=== PATIENT | female | born 1955 | race Caucasian/White ===

== ENCOUNTER → 2017-02-10 09:56 | Outpatient (CLI) | payer MEDICARE | END | disposition home or self-care (01) | LOC: D.MRI 09:56 | DX: M54.32 Sciatica, left side (principal); G62.9 Polyneuropathy, unspecified ==

== ENCOUNTER 2019-01-14 16:46 | Inpatient (IN) | payer MEDICARE ==
[~2019-01-14] VITALS: Ht 157.5 cm; Wt 94.8 kg
[2019-01-14 18:10] LABS: HEMATOCRIT 30.1 % (36.0-48.0); HEMOGLOBIN 10.4 g/dL (12-16); MCH 30.8 pg (26.0-34.0); MCHC 34.6 g/dL (31.0-37.0); MCV 89.1 fL (80.0-100.0); MEAN PLATELET VOLUME 10.3 fL (7.4-10.4); PLATELET COUNT 377 10x3/uL (130-400); RBC 3.38 10x6/uL (4.00-5.40); RDW 14.5 % (11.5-14.5); WBC 27.6 10x3/uL (4.8-10.8)
[2019-01-14 18:23] LABS: ALBUMIN 1.8 g/dL (3.4-5.0); ANION GAP 19.6 mmol/L (8-16); BILIRUBIN - TOTAL 0.73 mg/dL (0.2-1.3); CALCIUM 9.1 mg/dL (8.5-10.1); CARBON DIOXIDE 18.4 mmol/L (21.0-32.0); CREATININE - SERUM 1.2 mg/dL (0.6-1.3); PROTEIN - SERUM 6.9 g/dL (6.4-8.2)
[2019-01-14 18:31] LABS: EOSINOPHILS 1 % (0-7); LYMPHOCYTES 2 % (15-50); MONOCYTES 4 % (2-11); NEUTROPHILS 81 % (40-80)
[2019-01-14 18:32] LABS: ROULEAUX OCC
[2019-01-14 18:33] LABS: TARGET CELLS OCC; TEAR DROP CELLS OCC
[2019-01-14 18:34] LABS: PLATELET ESTIMATE INCREASED
[2019-01-14 20:31] VITALS: BP 115/58
--- NOTE | 2019-01-14 21:00 | NUR ---
RECEIVED PT TO FLOOR FROM ER VIA WHEELCHAIR. REVIEWED HOME MEDS AND HISTORY. ASSESSED PT WITH DR FRAGA. LOWER ABDOMEN SWOLLEN/RED. GROIN/LABIA SWOLLEN AND RED WITH ABSCESS ON RIGHT LABIA - DOCUMENTED PER FLOWSHEET. NO OTHER NEEDS AT THIS TIME. WILL CONTINUE TO MONITOR.
[2019-01-14] MEDS ORDERED: CARDIZEM 90 MG90 MG PO (21:04)
[2019-01-14] MEDS ORDERED: LOPID600 MG PO (21:05)
[2019-01-14] MEDS ORDERED: DICLOFENAC SODI50 MG PO (21:06)
[2019-01-14] MEDS ORDERED: JANUVIA50 MG PO (21:07)
[2019-01-14] MEDS ORDERED: GLUCOPHAGE500 MG PO (21:07)
[2019-01-14] MEDS ORDERED: COZAAR50 MG PO (21:07)
[2019-01-14] MEDS ORDERED: CYCLOBENZAPRINE10 MG PO (21:08)
[2019-01-14] MEDS ORDERED: MIRAPEX0.25 MG PO (21:09)
[2019-01-14] MEDS ORDERED: TRESIBA FLEX INJ 200 SC (21:11)
[2019-01-14] MEDS ORDERED: TRESIBA FLEX INJ 200 SQ (21:12)
[2019-01-14] MEDS ORDERED: CELEXA40 MG PO (21:13)
[2019-01-14] MEDS ORDERED: NOVOLOG100 UNIT/1 SC (21:14)
[2019-01-14] MEDS ORDERED: XALATAN 0.0052.5 ML EACH EYE (21:17)
[2019-01-14] MEDS ORDERED: OCUFLOX 0.3 % OP5 ML EACH EYE (21:18)
[2019-01-14] MEDS ORDERED: PRED-FORTE 1% OP5 ML LEFT EYE (21:24)
[2019-01-14] MEDS ORDERED: HYDROCODON-ACE1 EAC7 PO (21:30)
[2019-01-15 00:32] VITALS: BP 120/54; BMI 38.3
[2019-01-15 01:03] VITALS: BP 110/44
[2019-01-15 05:43] LABS: BASOPHILS 0.1 % (0-2); EOSINOPHILS 0.8 % (0-7); HEMATOCRIT 28.1 % (36.0-48.0); HEMOGLOBIN 9.6 g/dL (12-16); IMMATURE GRANULOCYTES 1.9 % (0-5); LYMPHOCYTES 3.3 % (15-50); MCH 30.4 pg (26.0-34.0); MCHC 34.2 g/dL (31.0-37.0); MCV 88.9 fL (80.0-100.0); MEAN PLATELET VOLUME 10.1 fL (7.4-10.4); NEUTROPHILS 87.9 % (40-80); PLATELET COUNT 343 10x3/uL (130-400); RBC 3.16 10x6/uL (4.00-5.40); RDW 14.8 % (11.5-14.5)
[2019-01-15 05:57] LABS: CALCIUM 8.8 mg/dL (8.5-10.1); CARBON DIOXIDE 18.8 mmol/L (21.0-32.0); POTASSIUM - SERUM 3.8 mmol/L (3.5-5.1)
--- NOTE | 2019-01-15 07:56 | NUR ---
PT ALERT X 4. BREATH SOUNDS CLEAR BILAT. IV TO LEFT FOREARM, PATENT, DRESSING CDI. LOWER ABDOMINAL AND GROIN AREA REDDENED AND FIRM, BLISTER TO LOWER ABDOMINAL, ABSCESS TO RIGHT POSTERIOR LABIA, ABSCESS TO LEFT ANTERIOR GROIN AREA, NO DRAINAGE AT THIS TIME. PT REPORTING NO PAIN. BED LOW, CALL LIGHT IN REACH. NO OTHER NEEDS AT THIS TIME.
--- NOTE | 2019-01-15 08:32 | HP ---
PATIENT: LISA RENDON MEDICAL RECORD: [id number] ACCOUNT: [id number] LOCATION:D.MS [id number] : 53 ADMISSION DATE: 01/14/19 PCP: ASHANTI RALPH MD HISTORY AND PHYSICAL EXAMINATION DATE OF ADMISSION: 01/14/2019 REASON FOR ADMISSION: Vulvar abscess. HISTORY OF PRESENT ILLNESS: This is a 63-year-old female, a patient of Dr. Ralph, who states she had onset of redness and swelling to the suprapubic area. It started 3 days ago, has gotten larger, was draining a little bit. She went to a walk-in clinic where they examined her, felt she had a large abscess and was transported to [facility]. Her white blood cell count was 27,600. Her lactic acid level was 1.8. Her magnesium level was 0.9. She has a large abscess in the right labia majora and she is admitted. PAST MEDICAL AND SURGICAL HISTORY: She has diabetes, reflux, depression, hypertension. PAST SURGICAL HISTORY: She recently had a cataract surgery in the left eye. She has had 3 back surgeries, carpal tunnel release, and left knee arthroscopic procedure. ALLERGIES: SULFA, CLINDAMYCIN, LISINOPRIL, AND IODINE. HOME MEDICATIONS: Include Flexeril 10 mg b.i.d. p.r.n. muscle spasm, diltiazem 90 mg 1 p.o. b.i.d., gemfibrozil 600 mg 1 p.o. b.i.d., losartan 50 mg once a day, diclofenac 50 mg b.i.d., pramipexole 0.25 mg p.o. at bedtime, citalopram 40 mg once a day, hydrocodone 10/325 one b.i.d. p.r.n. pain, latanoprost 0.005% ophthalmic drops 1 drop each eye once a day, ofloxacin 0.3% ophthalmic drops 1 drop in each eye 4 times a day, prednisolone acetate 1% ophthalmic drops 1 drop OS 4 times a day, Januvia 50 mg once a day, metformin 1000 mg twice a day, NovoLog insulin per sliding scale, Tresiba insulin 32 units subcutaneously in the morning and 30 units subcutaneously at bedtime. HABITS: No tobacco, alcohol or drugs. SOCIAL HISTORY: She lives with her ex- who also is her fiance. FAMILY HISTORY: Father at 63 of lung cancer. Mother at 72 of lung cancer. REVIEW OF SYSTEMS: GENERAL: No major weight changes. HEENT: No particular sinus or allergy problems. RESPIRATORY: No history of asthma or emphysema. CARDIAC: No history of heart disease or palpitations. GASTROINTESTINAL: She has had some heartburn. GENITOURINARY: No significant problems there. ENDOCRINE: She has diabetes, but she states is usually under better control, but she had cataract surgery in the last couple of weeks and has been on steroid eyedrops, which have really made her blood sugars go up. MUSCULOSKELETAL: She has had 3 low back surgeries and left knee arthroscopy, so she has some occasional muscle aches and pains and joint aches and pains. HISTORY AND PHYSICAL [id number] LISA RENDON NEUROLOGIC: No seizures. No migraines. She does have restless legs syndrome. PSYCHIATRIC: She has depression. PHYSICAL EXAMINATION: VITAL SIGNS: Today, temperature 98.4, pulse 92, respirations 16, blood pressure is 115/58, O2 sat 91%. GENERAL: She is awake and alert. She does not appear to be in acute distress. HEENT: Unremarkable. NECK: Supple. No JVD or bruit. HEART: Regular rate and rhythm. LUNGS: Clear. ABDOMEN: Soft, obese, nontender. PELVIC: She has some mild erythema in the suprapubic area on the right and down the right labia majora, palpation of this area shows a mass at least 6 cm in size along the labia majora. EXTREMITIES: She has multiple superficial abrasions from babysitting one of her family members' puppies. LABORATORY DATA: CBC white count 27,600, hemoglobin 10.4, hematocrit 30.1. Basic metabolic panel is okay except glucose is 249. Liver functions were okay. Lactic acid is normal at 1.8. Magnesium was low at 0.9. ASSESSMENT: 1. Abscess of the labia majora. 2. Diabetes. 3. Hypomagnesemia. PLAN: It was erroneously dictated in the ED note that patient did receive Cleocin; however, that medicine was not given as it was realized that she had an ALLERGIC REACTION TO CLEOCIN, will start vancomycin and Zosyn, will consult general surgery to see her tomorrow morning for this rather large abscess. We will monitor her diabetes. Will replace her magnesium. Other tests or procedures as warranted. TRANSINT:[id number] Voice Confirmation ID: [id number] DOCUMENT ID: [id number] JUNIOR FRAGA MD at 0832 CC: [id number] DICTATION DATE: 01/15/1950 STOPPER GRINDER: 01/15/19 0245 ADM IN [place] [id number] [place] [address]
[2019-01-15 09:49] VITALS: BP 134/74
--- NOTE | 2019-01-15 12:47 | NUR ---
PT SITTING UP IN BED PT LUNCH TRAY WAS ON NURSES STATION AND WENT TO TAKE IT TO PT SHE STATED SHE IS NOT SUPPOSE TO EAT UNTIL SURGERY HAS SEEN HER AND SHE DID HAVE BREAKFAST. WILL CONTINUE WITH PLAN OF CARE. NO OTHER NEEDS VOICED BED IN LOW POSITION, CL IN REACH
[2019-01-15 13:35] VITALS: BP 129/63
[2019-01-15 18:20] VITALS: BP 124/67
--- NOTE | 2019-01-15 20:00 | NUR ---
ALERT RESTING IN BED, AWAITING SURGERY, DENIES NEEDS AT THIS TIME, SEE SHIFT ASSESSMENT, CALL LIGHT IN REACH,
[2019-01-15 21:04] VITALS: BP 159/57
--- NOTE | 2019-01-15 22:35 | NUR ---
PRE OP MEDS GIVEN, TO SURGERY VIA BED
[2019-01-16] VITALS (8 sets, daily range): BP systolic 96–142; BP diastolic 45–78
--- NOTE | 2019-01-16 00:20 | NUR ---
BACK FROM SURGERY, ALERT, PACKING IN PLACE TO RIGHT LABIA, BARRETO CATH TO BEDSIDE DRAINAGE, VSS DENIES NEEDS AT THIS TIME, CALL LIGHT IN REACH
--- NOTE | 2019-01-16 01:05 | NUR ---
ONE UNIT OF BLOOD STARTED NO SIGN OF REACTION, C/O BURNING PAIN TO LABIA, WILL GIVE PAIN MEDICATION
[2019-01-16 05:34] LABS: HEMATOCRIT 29.4 % (36.0-48.0); MCH 30.8 pg (26.0-34.0); MCV 90.5 fL (80.0-100.0); PLATELET COUNT 335 10x3/uL (130-400); RBC 3.25 10x6/uL (4.00-5.40); RDW 14.8 % (11.5-14.5); WBC 22.9 10x3/uL (4.8-10.8)
[2019-01-16 05:35] LABS: CALC OSMOLALITY 274 mosm/kg (275-300); CALCIUM 7.6 mg/dL (8.5-10.1); CARBON DIOXIDE 17.7 mmol/L (21.0-32.0); CHLORIDE - SERUM 101 mmol/L (98-107); CREATININE - SERUM 0.8 mg/dL (0.6-1.3); GLUCOSE 192 mg/dL (74-106); POTASSIUM - SERUM 3.9 mmol/L (3.5-5.1); SODIUM 133 mmol/L (136-145); UREA NITROGEN 23 mg/dL (7-18); eGFR NON AFRICAN AMERICAN 76 mL/min (90-120)
--- NOTE | 2019-01-16 07:40 | NUR ---
AWAKE AND ALERT. ORIENTED X3. NO C/O AT THIS TIME. LUNGS ARE CLEAR BILATERALLY, NO COUGH NOTED. SKIN IS INTACT WITHOUT REDNESS EXCEPT INCISION TO VAGINAL AREA WHICH HAS A DRY INTACT DRESSING IN PLACE. IV TO RIGHT FOREARM IS PATENT WITHOUT REDNESS. SL TO LEFT HAND IS SAME. DENIES NEEDS. BARRETO PATENT WITH CLEAR YELLOW URINE.
[2019-01-16 08:18] LABS: EOSINOPHILS 3 % (0-7); LYMPHOCYTES 10 % (15-50); MONOCYTES 8 % (2-11); NEUTROPHILS 70 % (40-80); PLATELET ESTIMATE NORMAL; ROULEAUX OCC
--- NOTE | 2019-01-16 08:45 | NUR ---
DR. SCHAFFER HERE AND CHANGED DRESSING TO VAGINAL AREA. WOUND IS CLEAN AND NON ODIFEROUS AT THIS TIME.
--- NOTE | 2019-01-16 11:30 | NUR ---
FSBS 215. GIVEN 4 UNITS REGULAR SUB Q PER SS.
--- NOTE | 2019-01-16 17:00 | NUR ---
FSBS 265. GIVEN 4 UNITS REGULAR SUBQ PER SS.
--- NOTE | 2019-01-16 18:51 | NUR ---
ATE LESS THAN 10% OF SUPPER. DENIES NEEDS NO CHANGES NOTED.
--- NOTE | 2019-01-16 20:00 | NUR ---
ALERT RESTING IN BED, DENIES PAIN OR NEEDS AT THIS TIME,SEE SHIFT ASSESSMENT, CALL LIGHT IN REACH
--- NOTE | 2019-01-17 01:00 | NUR ---
DRESSING CHANGED TO RIGHT LABIA, WET TO DRY WITH ROLL OF KERLIX COVERED WITH ABD PAD AND SECURED WITH PANTIES, TOLERATED WELL
[2019-01-17 02:13] VITALS: BP 137/69
[2019-01-17 04:50] VITALS: BP 140/74
[2019-01-17 05:31] LABS: BASOPHILS 0.2 % (0-2); EOSINOPHILS 1.9 % (0-7); HEMATOCRIT 29.7 % (36.0-48.0); HEMOGLOBIN 10.2 g/dL (12-16); IMMATURE GRANULOCYTES 2.7 % (0-5); LYMPHOCYTES 10.2 % (15-50); MCH 31.1 pg (26.0-34.0); MCHC 34.3 g/dL (31.0-37.0); MCV 90.5 fL (80.0-100.0); MEAN PLATELET VOLUME 9.7 fL (7.4-10.4); MONOCYTES 5.7 % (2-11); NEUTROPHILS 79.3 % (40-80); PLATELET COUNT 366 10x3/uL (130-400); RBC 3.28 10x6/uL (4.00-5.40); RDW 15.2 % (11.5-14.5)
[2019-01-17 05:44] LABS: WBC 15.5 10x3/uL (4.8-10.8)
[2019-01-17 05:45] LABS: ANION GAP 16.5 mmol/L (8-16); CALCIUM 8.2 mg/dL (8.5-10.1); CARBON DIOXIDE 18.1 mmol/L (21.0-32.0); CREATININE - SERUM 0.9 mg/dL (0.6-1.3); POTASSIUM - SERUM 3.6 mmol/L (3.5-5.1)
[2019-01-17 08:48] VITALS: BP 164/95
[2019-01-17 12:23] VITALS: BP 162/83
--- NOTE | 2019-01-17 14:48 | NUR ---
22 GAUGE IV STARTED IN LEFT LOWER ARM X 1 STICK. FLUSHED WITHOUT DIFFICULTY OR EDEMA OR REDNESS. SECURED WITH TEGADERM. 1 GRAM VANC STARTED VIA INFUSION PUMP.
--- NOTE | 2019-01-17 14:54 | MORECARE ---
CASE MANAGEMENT DISCHARGE SUMMARY PATIENT: LISA RENDON UNIT: [id number] ADM DATE: 01/14/19 AGE: 63 : 54 SEX: F ROOM/BED: D.2207 AUTHOR: CHERRY VILLAREAL PHYSICIAN: REFERRING PHYSICIAN: ASHANTI MANUEL MD DATE OF SERVICE: 01/17/19 Discharge Plan Patient Name: LISA RENDON Facility: [facility]:[place] : 1955 Planned Disposition: Home Anticipated Discharge Date: Discharge Date: Expected LOS: Initial Reviewer: [email or web address] Initial Review Date: 01/14/2019 Generated: 01/17/19 3:54 pm DCPIA - Discharge Planning Initial Assessment Updated by [email or web address]: Tyra Parra on 01/17/19 2:54 pm * Is the patient Alert and Oriented? Yes * How many steps to enter\exit or inside your home? RAMP * PCP * Pharmacy [facility] * Preadmission Environment Home with Family * ADLs Independent * Equipment Bedside Commode Elevated Toliet Seat Glucometer Nebulizer Rolling Walker Shower Chair Walker Wheelchair * List name and contact numbers for known caregivers / representatives who currently or will assist patient after discharge: VIOLA [phone] * Verbal permission to speak to the caregivers and representatives has been obtained from the patient. Yes * Community resources currently utilized None * Additional services required to return to the preadmission environment? No * Can the patient safely return to the preadmission environment? Yes * Has this patient been hospitalized within the prior 30 days at any hospital? No Patient Name: LISA RENDON Page [phone] at 1454 All edits/amendments must be made on the electronic document DICTATION DATE: 01/17/191453 BARKER OPERATOR: ADE 01/17/191453 RPT#: [id number] DC DATE: STATUS: ADM IN [facility] [address] [place] [address] END OF REPORT
--- NOTE | 2019-01-17 15:01 | MORECARE ---
CASE MANAGEMENT DISCHARGE SUMMARY PATIENT: LISA RENDON UNIT: [id number] ADM DATE: 01/14/19 AGE: 63 : 54 SEX: F ROOM/BED: D.2207 AUTHOR: CHERRY VILLAREAL PHYSICIAN: REFERRING PHYSICIAN: ASHANTI MANUEL MD DATE OF SERVICE: 01/17/19 Discharge Plan Patient Name: LISA RENDON Facility: [facility]:[place] : 1955 Planned Disposition: Home Anticipated Discharge Date: Discharge Date: Expected LOS: Initial Reviewer: [email or web address] Initial Review Date: 01/14/2019 Generated: 01/17/19 4:01 pm Comments DCP- Discharge Planning Updated by [email or web address]: Tyra Parra on 01/17/19 1:[address] Patient Name: LISA RENDON Admission Status: ER Accout number: [id number] Admission Date: 01-14-2019 : 1955 Admission Diagnosis: Attending: ASHANTI MANUEL Current LOS: 3 Anticipated DC Date: Planned Disposition: Home Primary Insurance: MEDICARE A & B Discharge Planning Comments: CM met with patient to complete initial dc planning assessment. CM educated patient on the CM role and verbal consent given by patient to complete assessment. Patient lives at home with her where she is independent with her care. At discharge patient plans to return home and feels this is a safe discharge. Viola, will be her starting gate driver home. CM discussed availability of home health, rehab services, and medical equipment. Patient stated that she has a cane, walker, wheelchair, shower chair, and glucometer at home. Patient denied known discharge needs at this time. Did not feel like she needed home health either. CM will continue to follow and will assist as needed with dc plans/needs. Quick Sketch Artist: Tyra Parra DCPIA - Discharge Planning Initial Assessment Updated by [email or web address]: Tyra Parra on 01/17/19 2:54 pm * Is the patient Alert and Oriented? Yes * How many steps to enter\exit or inside your home? RAMP * PCP YEMENI * [facility] * Preadmission Environment Home with Family * ADLs Independent * Equipment Bedside Commode Elevated Toliet Seat Glucometer Nebulizer Rolling Walker Shower Chair Walker Wheelchair * List name and contact numbers for known caregivers / representatives who currently or will assist patient after discharge: VIOLA [phone] * Verbal permission to speak to the caregivers and representatives has been obtained from the patient. Yes * Community resources currently utilized None * Additional services required to return to the preadmission environment? No * Can the patient safely return to the preadmission environment? Yes * Has this patient been hospitalized within the prior 30 days at any hospital? No Last DP export: 01/17/19 1:54 pm Patient Name: LISA RENDON Page [phone] at 1501 All edits/amendments must be made on the electronic document DICTATION DATE: 01/17/19 150 PATIENT ADMITTING CLERK: ADE 01/17/19 1501 RPT#: [id number] DC DATE: STATUS: ADM IN [facility] [address] [place] [address] END OF REPORT
[2019-01-17 16:45] VITALS: BP 149/81
[2019-01-17 21:27] VITALS: BP 176/83
[2019-01-18 02:05] VITALS: BP 163/74
[2019-01-18 04:29] LABS: HEMATOCRIT 29.9 % (36.0-48.0); MCH 30.4 pg (26.0-34.0); MCHC 33.4 g/dL (31.0-37.0); MCV 90.9 fL (80.0-100.0); MEAN PLATELET VOLUME 9.7 fL (7.4-10.4); PLATELET COUNT 372 10x3/uL (130-400); RBC 3.29 10x6/uL (4.00-5.40); RDW 15.5 % (11.5-14.5); WBC 13.8 10x3/uL (4.8-10.8)
[2019-01-18 04:31] LABS: ANION GAP 15.9 mmol/L (8-16); CALCIUM 8.4 mg/dL (8.5-10.1); CARBON DIOXIDE 19.3 mmol/L (21.0-32.0); CREATININE - SERUM 0.9 mg/dL (0.6-1.3)
[2019-01-18 04:32] LABS: POTASSIUM - SERUM 4.2 mmol/L (3.5-5.1)
[2019-01-18 05:03] LABS: EOSINOPHILS 2 % (0-7); LYMPHOCYTES 12 % (15-50); MONOCYTES 6 % (2-11); NEUTROPHILS 74 % (40-80); PLATELET ESTIMATE NORMAL
[2019-01-18 06:17] VITALS: BP 118/70
[2019-01-18 10:08] VITALS: BP 143/81
[2019-01-18 13:03] VITALS: BP 130/56
--- NOTE | 2019-01-18 14:54 | NUR ---
DRESSING CHANGE COMPLETED. TOLERATED WELL. PATIENT UP IN CHAIR. LINENS CHANGED. CL AND PHONE IN REACH. NO NEEDS AT THIS TIME.
[2019-01-18 16:58] VITALS: BP 151/74
[2019-01-18 21:16] VITALS: BP 160/69
[2019-01-19 00:26] VITALS: BP 150/63
--- NOTE | 2019-01-19 02:17 | NUR ---
I have reviewed this patient and I concur with the Shift Assessment completed by the Licensed Practical Nurse today this shift.
--- NOTE | 2019-01-19 03:01 | NUR ---
PT RESTING IN BED. EYES CLOSED. NO SIGNS OF DISTRESS. BREATHING EVEN AND UNLABORED. CALL LIGHT IN REACH. BED LOWERED AND LOCKED. WILL CONTINUE PLAN OF CARE.
[2019-01-19 04:44] LABS: BASOPHILS 0.2 % (0-2); EOSINOPHILS 1.9 % (0-7); HEMATOCRIT 29.1 % (36.0-48.0); HEMOGLOBIN 9.8 g/dL (12-16); LYMPHOCYTES 11.1 % (15-50); MCH 30.8 pg (26.0-34.0); MCHC 33.7 g/dL (31.0-37.0); MCV 91.5 fL (80.0-100.0); MEAN PLATELET VOLUME 9.5 fL (7.4-10.4); MONOCYTES 6.9 % (2-11); NEUTROPHILS 73.9 % (40-80); PLATELET COUNT 353 10x3/uL (130-400); RBC 3.18 10x6/uL (4.00-5.40); RDW 15.5 % (11.5-14.5); WBC 14.3 10x3/uL (4.8-10.8)
[2019-01-19 04:59] LABS: CALC OSMOLALITY 273 mosm/kg (275-300); CALCIUM 8.3 mg/dL (8.5-10.1); CARBON DIOXIDE 20.3 mmol/L (21.0-32.0); CHLORIDE - SERUM 104 mmol/L (98-107); CREATININE - SERUM 0.8 mg/dL (0.6-1.3); GLUCOSE 121 mg/dL (74-106); POTASSIUM - SERUM 4.1 mmol/L (3.5-5.1); SODIUM 136 mmol/L (136-145); UREA NITROGEN 14 mg/dL (7-18); eGFR NON AFRICAN AMERICAN 76 mL/min (90-120)
[2019-01-19 05:12] VITALS: BP 164/70
[2019-01-19 08:58] VITALS: BP 162/83
[2019-01-19 13:05] VITALS: BP 152/69; BMI 38.2
--- NOTE | 2019-01-19 15:00 | NUR ---
WET TO DRY DRESSING CHANGED TO RIGHT LABIA PER ORDERS
[2019-01-19 18:05] VITALS: BP 173/85; Ht 157.5 cm; Wt 94.8 kg
--- NOTE | 2019-01-19 19:56 | NUR ---
20 DIANA TO LEFT FA WITH ONE ATEMPT. TOLARATED WELL.
[2019-01-19 20:02] VITALS: BP 152/81
--- NOTE | 2019-01-19 20:08 | NUR ---
RESTING IN BED WITH NO NEEDS AT THIS TIME 20 DIANA WITH NS AT [address] TELE[address] IN [PLACVE F/C IN PLACE AND DAYRONEN, NO NEEDS AT THIS TIME.
[2019-01-20 00:33] VITALS: BP 153/72
--- NOTE | 2019-01-20 02:47 | NUR ---
DRESSING CHANGED PEER ORDERS AT 0130 TOLARATED WELL
[2019-01-20 04:39] VITALS: BP 139/70
--- NOTE | 2019-01-20 07:30 | NUR ---
PT AAOX4 RESP EVEN AND NONLABORED, NO SIGNS OF DISTRESS NOTED, FAMILY AT BEDSIDE NO NEEDS EXPRESSED CL IN REACH
[2019-01-20 08:04] LABS: BASOPHILS 0.1 % (0-2); HEMATOCRIT 31.1 % (36.0-48.0); HEMOGLOBIN 10.4 g/dL (12-16); IMMATURE GRANULOCYTES 6.3 % (0-5); LYMPHOCYTES 14.7 % (15-50); MCH 30.8 pg (26.0-34.0); MCHC 33.4 g/dL (31.0-37.0); MEAN PLATELET VOLUME 9.8 fL (7.4-10.4); MONOCYTES 7.6 % (2-11); NEUTROPHILS 69.3 % (40-80); PLATELET COUNT 392 10x3/uL (130-400); RBC 3.38 10x6/uL (4.00-5.40); RDW 15.1 % (11.5-14.5); WBC 13.8 10x3/uL (4.8-10.8)
[2019-01-20 08:14] LABS: CALC OSMOLALITY 274 mosm/kg (275-300); CALCIUM 8.5 mg/dL (8.5-10.1); CARBON DIOXIDE 20.8 mmol/L (21.0-32.0); CHLORIDE - SERUM 105 mmol/L (98-107); CREATININE - SERUM 0.7 mg/dL (0.6-1.3); GLUCOSE 149 mg/dL (74-106); POTASSIUM - SERUM 3.6 mmol/L (3.5-5.1); SODIUM 136 mmol/L (136-145); UREA NITROGEN 13 mg/dL (7-18); eGFR NON AFRICAN AMERICAN 89 mL/min (90-120)
[2019-01-20 09:06] VITALS: BP 150/66
--- NOTE | 2019-01-20 09:30 | NUR ---
DRESSING CHANGED PER DR. SEGURA PT TOLERATED WITHOUT COMPLIANT
[2019-01-20 12:27] VITALS: BP 160/82
[2019-01-20 16:44] VITALS: BP 145/69
--- NOTE | 2019-01-20 18:18 | NUR ---
I have reviewed this patient and I concur with the Shift Assessment completed by the Licensed Practical Nurse today this shift.
--- NOTE | 2019-01-20 19:45 | NUR ---
PT LYING IN BED RESTING WITH EYES CLOSED, WITHOUT DISTRESS. DENIES NEEDS OR PAIN. CL IN REACH, WILL CTM
[2019-01-20 20:28] VITALS: BP 159/80
--- NOTE | 2019-01-20 20:30 | NUR ---
IV LEFT FA INFILTRATED, DC'D WITH CATHETER INTACT
--- NOTE | 2019-01-20 22:00 | NUR ---
DRESSING CHANGED ORDERED TO RIGHT GROIN/ELIZABETH AREA
--- NOTE | 2019-01-20 23:00 | NUR ---
22G IV SITED TO RIGHT HAND X1 ATTEMPT
[2019-01-21 00:31] VITALS: BP 134/73
[2019-01-21 09:39] VITALS: BP 162/82
--- NOTE | 2019-01-21 12:00 | NUR ---
PT VISTING WITH FAMILY IN THE ROOM, CL IN REACH NO SIGNS OF DISTRESS NOTED
[2019-01-21 14:17] VITALS: BP 174/76
[2019-01-21 16:59] VITALS: BP 169/80
--- NOTE | 2019-01-21 17:59 | NUR ---
I have reviewed this patient and I concur with the Shift Assessment completed by the Licensed Practical Nurse today this shift.
--- NOTE | 2019-01-21 19:45 | NUR ---
PT LYING IN BED RESTING WITHOUT DISTRESS, ALERT AND ORIENTED. DENIES NEEDS OR PAIN. SCDS ON, CL IN REACH. WILL CTM
[2019-01-21 19:48] VITALS: BP 176/80
[2019-01-22 01:52] VITALS: BP 136/57
--- NOTE | 2019-01-22 04:30 | NUR ---
DRESSING CHANGED TO RIGHT GROIN/ELIZABETH AREA ORDERED
[2019-01-22 06:20] VITALS: BP 147/64
--- NOTE | 2019-01-22 08:09 | NUR ---
PATIENT RESTING IN BED. DRESSING C/D/I. NO NEEEDS VOICED, CL IN REACH
[2019-01-22 09:40] VITALS: BP 191/91
--- NOTE | 2019-01-22 13:16 | NUR ---
NUTRITION F/U PT TOLERATING DIABETIC DIET, 100% INTAKE RECENT MEALS. WILL CONTINUE TO PROVIDE DIET, MONITOR PO INTAKE. RD FOLLOWING
[2019-01-22 13:55] VITALS: BP 172/78
--- NOTE | 2019-01-22 15:59 | NUR ---
DR MANUEL NOTIFIED OF PATIENTS C/O ITCHING AND REDNESS TO ELIZABETH, GROIN AREA. ONE TIME DOSE OF DIFLUCAN ORDERED
[2019-01-22 17:39] VITALS: BP 155/71
[2019-01-22 18:07] LABS: AEROBE ID Final report (())
[2019-01-22 20:34] VITALS: BP 177/67
[2019-01-23] VITALS (12 sets, daily range): BP systolic 135–177; BP diastolic 59–83
--- NOTE | 2019-01-23 04:07 | NUR ---
I have reviewed this patient and I concur with the Shift Assessment completed by the Licensed Practical Nurse today this shift.
--- NOTE | 2019-01-23 08:42 | NUR ---
PATIENT OFF FLOOR FOR SURGERY
[2019-01-23 09:32] LABS: BASOPHILS 0.2 % (0-2); EOSINOPHILS 2.2 % (0-7); HEMATOCRIT 30.6 % (36.0-48.0); HEMOGLOBIN 10.1 g/dL (12-16); IMMATURE GRANULOCYTES 1.4 % (0-5); LYMPHOCYTES 18.6 % (15-50); MCH 30.9 pg (26.0-34.0); MCV 93.6 fL (80.0-100.0); MEAN PLATELET VOLUME 10.2 fL (7.4-10.4); MONOCYTES 7.4 % (2-11); NEUTROPHILS 70.2 % (40-80); PLATELET COUNT 465 10x3/uL (130-400); RBC 3.27 10x6/uL (4.00-5.40); RDW 15.1 % (11.5-14.5); WBC 14.1 10x3/uL (4.8-10.8)
--- NOTE | 2019-01-23 11:12 | NUR ---
1028 - PIV RESITED TO RT AC BY MILLER DEWITT HEAVY [employer]
--- NOTE | 2019-01-23 15:53 | NUR ---
PATIENT DRESSING CHANGED. TOP RIGHT CORNER HAD A BIT OF BLEEDING. PATIENT SAID, "IT BURNED". DENIES ANY PAIN AT THIS TIME CL AND PHONE IN REACH. TM
[2019-01-24 01:22] VITALS: BP 133/61
--- NOTE | 2019-01-24 05:00 | NUR ---
DRESSING CHANGED PER ORDER. VERY LITTLE BLEEDING NOTED. PT TOLERATED WELL. BARRETO/PERICARE COMPLETED. PT DENIES NEED FOR PAIN MEDICATION. WILL CONTINUE TO MONITOR.
[2019-01-24 05:11] LABS: BASOPHILS 0.3 % (0-2); EOSINOPHILS 2.4 % (0-7); HEMATOCRIT 29.1 % (36.0-48.0); HEMOGLOBIN 9.4 g/dL (12-16); IMMATURE GRANULOCYTES 0.9 % (0-5); LYMPHOCYTES 16.3 % (15-50); MCH 30.6 pg (26.0-34.0); MCHC 32.3 g/dL (31.0-37.0); MCV 94.8 fL (80.0-100.0); MEAN PLATELET VOLUME 9.9 fL (7.4-10.4); MONOCYTES 7.6 % (2-11); NEUTROPHILS 72.5 % (40-80); PLATELET COUNT 528 10x3/uL (130-400); RBC 3.07 10x6/uL (4.00-5.40); RDW 15.2 % (11.5-14.5); WBC 12.8 10x3/uL (4.8-10.8)
[2019-01-24 05:32] LABS: CALC OSMOLALITY 276 mosm/kg (275-300); CALCIUM 8.3 mg/dL (8.5-10.1); CARBON DIOXIDE 25.8 mmol/L (21.0-32.0); CHLORIDE - SERUM 103 mmol/L (98-107); CREATININE - SERUM 0.7 mg/dL (0.6-1.3); GLUCOSE 196 mg/dL (74-106); POTASSIUM - SERUM 3.9 mmol/L (3.5-5.1); SODIUM 136 mmol/L (136-145); UREA NITROGEN 12 mg/dL (7-18); eGFR NON AFRICAN AMERICAN 89 mL/min (90-120)
[2019-01-24 05:55] VITALS: BP 122/62
[2019-01-24 09:45] VITALS: BP 155/76
--- NOTE | 2019-01-24 12:15 | NUR ---
COMPLAINS OF RASH AND ITCHING. RASH NOTED TO UPPER TORSO. CALL TO DR MANUEL,ORDERS RECIEVED AND INITIATED
--- NOTE | 2019-01-24 12:16 | NUR ---
CALL TO DR DA SILVA RE... FAITH ,ABX CHANGE
[2019-01-24 14:12] VITALS: BP 151/63
[2019-01-24 17:22] VITALS: BP 153/63
--- NOTE | 2019-01-24 19:55 | NUR ---
LYING IN BED. ALERT AND ORIENTED. RESP EVEN AND NONLABORED. O2 @ 3L/NC. DRSG NOTED TO RT SUPRAPUBIC/LABIA. DENIES PAIN. TELEMETRY SHOWS SR WITH RATE OS 87. ABD DISTENDED. REPORTS LOOSE STOOL TODAY. BARRETO CATH PATENT AND DRAINING CLEAR YELLLOW URINE. RASH NOTED TO BACK FROM POSSIBLE ALLERGIC REACTION EARLIER TODAY. SALINE LOCK NOTED TO RT WRIST. SR ELEVATED X2. CL IN REACH.
--- NOTE | 2019-01-24 20:38 | NUR ---
PT IS WITHOUT DISTRESS.REMAINS WITHOUT CHANGE.CONT PLAN OF CARE
[2019-01-24 20:51] VITALS: BP 129/63
--- NOTE | 2019-01-24 22:15 | NUR ---
WET TO DRY DRSG CHANGE TO RT SUPRAPUBIC/LABIA AREA. SEROSANGUINEOUS DRAINAGE NOTED TO OLD PACKING. NO ODOR NOTED. SOME REDNESS NOTED AROUND WOUND EDGES. WOUND BED RED, BEEFY WITH SOME YELLOW SLOUGH. PT ESTHER WELL AND DENIED PAIN.
[2019-01-25 01:35] VITALS: BP 141/69
[2019-01-25 06:31] VITALS: BP 139/56
--- NOTE | 2019-01-25 07:43 | NUR ---
ALERT AND ORIENTED X 3. LUNGS CLEAR BILATERALLY IN ALL MOODY. HEART SOUNDS S1 AND S2 HEARD IN ALL MOODY. BOWEL SOUNDS ACTIVE X 4. RASH NOTED TO ABD FROM MEDICATION REACTION YESTERDAY. DRSG INTACT TO S/P, LABIA. SCABS NOTED TO BLE. BARRETO IN PLACE WITH CLEAR YELLOW URINE. EDEMA TO BLE. MILD ABD DISTENTION NOTED. TELEMETRY IN PLACE, SINUS RHYTHM IN 80S. IV TO RIGHT WRIST PATENT WITHOUT REDNESS. DENIES PAIN. DENIES NEEDS. WILL CONTINUE TO MONITOR.
--- NOTE | 2019-01-25 09:09 | NUR ---
DRSG CHANGED TO RIGHT GROIN AREA. NO SIGNS SYMPTOMS OF INFECTION NOTED. DENIES PAIN. DENIES NEEDS. WILL CONTINUE TO MONITOR.
[2019-01-25 10:10] VITALS: BP 165/78
--- NOTE | 2019-01-25 11:30 | NUR ---
REQUESTED AND GIVEN SHOWER. BED LINENS CHANGED.
--- NOTE | 2019-01-25 11:54 | NUR ---
PATIENT REMOVED TELEMETRY. STATES DOES NOT WANT TO WEAR. SPOKE WITH DR MANUEL NURSE. NURSE STATES DR MANUEL WILL PUT IN ORDER TO DC.
--- NOTE | 2019-01-25 12:18 | NUR ---
Nutrition Follow Up: Nursing in room with pt at the time of RD visit. Interview deferred at this time. Pt is POD 2 I&D. Diet: ADA; Glucerna BID PO Intake: 91% meal avg BM: 01/22/19 Meds and Labs reviewed Rec continue current diet, supplement regimen. Rec MV, Vit C daily. Rec 1 pkt Donald BID to promote wound healing. RD following.
--- NOTE | 2019-01-25 13:12 | NUR ---
SITTING IN BED. AT BEDSIDE. DENIES PAIN. DENIES NEEDS. WILL CONTINUE TO MONITOR.
[2019-01-25 14:12] LABS: AEROBE ID Final report (()); RESULT 1 Actinomyces species (())
[2019-01-25 14:30] VITALS: BP 152/69
--- NOTE | 2019-01-25 15:27 | NUR ---
RESTING IN BED. DENIES PAIN. DENIES NEEDS. AT BEDSIDE.
--- NOTE | 2019-01-25 16:40 | NUR ---
DRSG CHANGED TO SUPRAPUBIC/LABIA AREA. NO SIGNS INFECTION. DENIES PAIN. DENIES NEEDS. WILL CONTINUE TO MONITOR.
[2019-01-25 17:59] VITALS: BP 153/77
--- NOTE | 2019-01-25 18:07 | NUR ---
IV INFILTRATED TO RFA. ATTEMPTED TO RESITE IV TO LEFT HAND WITHOUT SUCCESS. ANOTHER NURSE WILL ATTEMPT.
--- NOTE | 2019-01-25 18:28 | NUR ---
IV REMOVED FROM RIGHT WRIST WITH TIP INTACT. IV RESITED TO RFA.
--- NOTE | 2019-01-25 19:30 | NUR ---
PATIENT ALERT AND ORIENTED. DENIES NEEDS AT THIS TIME. ASKS THAT DRESSING CHANGE BE CLOSER TO MIDNIGHT INSTEAD OF 11. ADVISED PATIENT THAT IS FINE IT IS DUE BETWEEN 11:30 AND 12. PATIENT STATES PAIN IS MINIMAL. DRESSING FROM [address] WITH MINIMAL DRAINAGE. LEFT FORE ARM IV THAT IS PATENT AND FLUSHING WELL. PATIENT HAS GENERALIZED RED RASH. REQUESTS BENEDRYL WITH NIGHT TIME MEDICINE. RASH DOES NOT CAUSE PAIN BUT PT STATES IT DOES "ITCH." DENIES FURTHER NEEDS AT THIS TIME.
[2019-01-25 19:58] VITALS: BP 141/64
--- NOTE | 2019-01-25 23:47 | NUR ---
DRESSING CHANGED PERFORMED PER ORDER. SISTER AT BEDSIDE. DENIES FURTHER NEEDS AT THIS TIME.
[2019-01-26] VITALS: BP 168/77
--- NOTE | 2019-01-26 03:00 | NUR ---
I have reviewed this patient and I concur with the Shift Assessment completed by the Licensed Practical Nurse today this shift.
[2019-01-26 04:00] VITALS: BP 133/52
--- NOTE | 2019-01-26 07:52 | NUR ---
ALERT AND ORIENTED X 3. LUNGS CLEAR BILATERALLY IN ALL MOODY. HEART SOUNDS S1 AND S2 HEARD IN ALL MOODY. BOWEL SOUNDS ACTIVE X 4. STATES HAD BM THIS AM. NONPITTING EDEMA TO BLE. RASH NOTED FROM PENICILLIN REACTION 2 DAYS AGO SPREAD UP BACK AND TO STOMACH. REQUESTS PRN BENADRYL WITH AM MEDICATIONS. DENIES FURTHER NEEDS. SISTER AT BEDSIDE. WILL CONTINUE TO MONITOR.
[2019-01-26 08:59] VITALS: BP 153/74
--- NOTE | 2019-01-26 09:45 | NUR ---
SAMMY CHANGED BY DR BUNN IN ROOM. STATES WILL PROBABLY DO PROCEDURE TO CLOSE WOUND TUESDAY OR TUESDAY. PATIENT DENIES FURTHER QUESTIONS.
--- NOTE | 2019-01-26 10:40 | NUR ---
PATIENT REQUESTED CALL DR MANUEL OFFICE FOR NORCO ORDER. CALLED OFFICE AND LEFT MESSAGE FOR DR MANUEL NURSE.
--- NOTE | 2019-01-26 13:37 | NUR ---
RESTING IN BED. DENIES PAIN. DENIES NEEDS. WILL CONTINUE TO MONITOR.
[2019-01-26 13:48] VITALS: BP 163/70
--- NOTE | 2019-01-26 14:27 | NUR ---
REQUESTED AND GIVEN PRN NORCO.
--- NOTE | 2019-01-26 15:32 | NUR ---
RESTING IN BED. DENIES PAIN. DENIES NEEDS. WILL CONTINUE TO MONITOR.
--- NOTE | 2019-01-26 16:55 | NUR ---
DRSG CHANGED TO SUPRAPUBIC LABIA AREA. NO SIGNS SYMPTOMS OF INFECTION NOTED. DENIES PAIN. DENIES NEEDS. WILL CONTINUE TO MONITOR.
[2019-01-26 17:49] VITALS: BP 153/74
--- NOTE | 2019-01-26 18:32 | NUR ---
RESTING IN BED. DENIES PAIN. DENIES NEEDS. BED LOW. CALL GARCIA AND PERSONAL ITEMS IN REACH.
[2019-01-26 20:00] VITALS: BP 140/51
[2019-01-27] VITALS: BP 145/67
--- NOTE | 2019-01-27 03:41 | NUR ---
ASSESSED AT THE BEGINNING OF THE SHIFT. PT IS ALERT AND ORIENTED, ABLE TO VERBALIZE NEEDS, SHE HAS BEEN RESTING WELL AND HAS VOICED NO PROBLEMS. PAIN MED WAS GIVEN AT HS AND SHE IS ABLE TO GET UP TO THE BATHROOM BY HERSELF.
[2019-01-27 04:00] VITALS: BP 141/69
[2019-01-27 06:19] LABS: BASOPHILS 0.6 % (0-2); EOSINOPHILS 3.2 % (0-7); HEMATOCRIT 30.3 % (36.0-48.0); IMMATURE GRANULOCYTES 0.6 % (0-5); LYMPHOCYTES 21.7 % (15-50); MCH 30.5 pg (26.0-34.0); MCV 92.4 fL (80.0-100.0); MEAN PLATELET VOLUME 9.5 fL (7.4-10.4); NEUTROPHILS 63.9 % (40-80); RBC 3.28 10x6/uL (4.00-5.40); WBC 10.5 10x3/uL (4.8-10.8)
[2019-01-27 06:20] LABS: PLATELET COUNT 655 10x3/uL (130-400)
[2019-01-27 06:48] LABS: CALC OSMOLALITY 272 mosm/kg (275-300); CALCIUM 9.1 mg/dL (8.5-10.1); CARBON DIOXIDE 24.5 mmol/L (21.0-32.0); CHLORIDE - SERUM 101 mmol/L (98-107); CREATININE - SERUM 0.7 mg/dL (0.6-1.3); POTASSIUM - SERUM 3.8 mmol/L (3.5-5.1); SODIUM 137 mmol/L (136-145); UREA NITROGEN 11 mg/dL (7-18); VANCOMYCIN - TROUGH 38.3 ug/mL (10.0-20.0); eGFR NON AFRICAN AMERICAN 89 mL/min (90-120)
[2019-01-27 06:51] LABS: GLUCOSE 103 mg/dL (74-106)
--- NOTE | 2019-01-27 08:05 | NUR ---
PT RESTING IN BED. TALKING ON PHONE. DENIES ANY NEEDS. NO S/S OF ACUTE DISTRESS. CL IN PLACE.
[2019-01-27 09:43] VITALS: BP 152/81
[2019-01-27 14:17] VITALS: BP 146/81
[2019-01-27 17:44] VITALS: BP 153/61
--- NOTE | 2019-01-27 19:05 | NUR ---
PT ALERT AND ORIENTED WITH HOB ELEVATED WATCHING TV. PT DENIES PAIN. STATES ITCHING FROM RASH THAT IS PREVIOUSLY DOCUMENTED. ABDOMEN DISTENDED. NON TENDER TO TOUCH. ACTIVE BOWEL SOUNDS. RIGHT PERINEAL/RIGHT GROIN/RIGHT LABIA AREA OPEN INCISION IS NOTED AND CURRENTLY DRESSED. PT HAS BARRETO CATHETER THAT IS DRAINING LIGHT YELLOW URINE. DENIES FURTHER NEEDS AT THIS TIME. HAS CALL LIGHT IN HAND AND DEMONSTRATES HOW TO USE EFFECTIVELY. BED IN LOWEST POSITON POSSIBLE. SIDE RAILS UP X 2.
--- NOTE | 2019-01-27 19:08 | NUR ---
PT RESTING IN BED. HELD VANC DT TROUGH-38. NO S/S OF ACUTE DISTRESS. CL IN PLACE.
[2019-01-27 20:00] VITALS: BP 125/71
--- NOTE | 2019-01-27 23:47 | NUR ---
PT DRESSING CHANGE PERFORMED PER ORDER. PT TOLERATED WELL.
[2019-01-28] VITALS: BP 137/59
[2019-01-28 04:00] VITALS: BP 150/57
--- NOTE | 2019-01-28 04:39 | NUR ---
I have reviewed this patient and I concur with the Shift Assessment completed by the Licensed Practical Nurse today this shift.
--- NOTE | 2019-01-28 08:02 | NUR ---
PT ALERT X 4. BREATH SOUNDS CLEAR BILAT. IV TO RIGHT FOREARM, PATENT, DRESSING CDI. WOUND TO ELIZABETH AREA, DRESSING CDI. BED LOW, CALL LIGHT IN REACH. NO OTHER NEEDS AT THIS TIME.
[2019-01-28 10:13] VITALS: BP 157/79
[2019-01-28 13:54] VITALS: BP 170/76
[2019-01-28 17:49] VITALS: BP 166/72
--- NOTE | 2019-01-28 19:30 | NUR ---
PT ALERT AND ORIENTED. HAS GENERALIZED RED RASH ALL OVER BODY. ROOM AIR. BARRETO CATHETER. RIGHT FOREARM IV THAT IS SALINE LOCKED. HAS OPEN WOUND TO THE PERINEAL/RIGHT GROIN AREA THAT HAS DRESSING FROM PREVIOUS SHIFT. DENIES PAIN STATING "I JUST GOT A PAIN PILL A FEW MINUTES AGO." DENIES FURTHER NEEDS AT THIS TIME. CALL LIGHT IN REACH OF PATIENT. DENIES FURTHER CARE AT THIS TIME.
[2019-01-28 21:25] VITALS: BP 148/57
--- NOTE | 2019-01-29 01:10 | NUR ---
DRESSING CHANGED PER ORDER.
[2019-01-29 01:19] VITALS: BP 158/65
--- NOTE | 2019-01-29 03:04 | NUR ---
I have reviewed this patient and I concur with the Shift Assessment completed by the Licensed Practical Nurse today this shift.
[2019-01-29 05:26] LABS: BASOPHILS 0.6 % (0-2); EOSINOPHILS 3.1 % (0-7); HEMATOCRIT 28.8 % (36.0-48.0); HEMOGLOBIN 9.6 g/dL (12-16); IMMATURE GRANULOCYTES 0.5 % (0-5); LYMPHOCYTES 18.8 % (15-50); MCH 30.7 pg (26.0-34.0); MCHC 33.3 g/dL (31.0-37.0); MEAN PLATELET VOLUME 9.5 fL (7.4-10.4); MONOCYTES 9.5 % (2-11); NEUTROPHILS 67.5 % (40-80); PLATELET COUNT 573 10x3/uL (130-400); RBC 3.13 10x6/uL (4.00-5.40); WBC 12.9 10x3/uL (4.8-10.8)
[2019-01-29 06:00] LABS: ALBUMIN 2.5 g/dL (3.4-5.0); ALKALINE PHOSPHATASE 99 U/L (46-116); ALT (SGPT) 26 U/L (10-68); BILIRUBIN - TOTAL 0.32 mg/dL (0.2-1.3); CALCIUM 9.1 mg/dL (8.5-10.1); CARBON DIOXIDE 22.2 mmol/L (21.0-32.0); CHLORIDE - SERUM 101 mmol/L (98-107); CREATININE - SERUM 0.8 mg/dL (0.6-1.3); POTASSIUM - SERUM 3.6 mmol/L (3.5-5.1); PROTEIN - SERUM 7.7 g/dL (6.4-8.2); SODIUM 135 mmol/L (136-145); eGFR NON AFRICAN AMERICAN 76 mL/min (90-120)
[2019-01-29 06:10] LABS: CALC OSMOLALITY 274 mosm/kg (275-300); GLUCOSE 162 mg/dL (74-106); UREA NITROGEN 14 mg/dL (7-18)
[2019-01-29 09:01] VITALS: BP 152/70
--- NOTE | 2019-01-29 09:52 | NUR ---
PT ALERT X 4. BREATH SOUNDS CLEAR BILAT. IV TO RIGHT FOREARM, PATENT, DRESSING CDI. DRESSING TO ELIZABETH AREA CDI. PT REPORTING NO PAIN AT THIS TIME. BED LOW, CALL LIGHT IN REACH, NO OTHER NEEDS AT THIS TIME.
[2019-01-29 13:05] VITALS: BP 161/84
[2019-01-29 17:15] VITALS: BP 146/57
--- NOTE | 2019-01-29 19:45 | NUR ---
PT SITTING UP IN BED WITHOUT DISTRESS, ALERT AND ORIENTED. STATES NO PAIN OR COMPLAINTS AT THIS TIME. REFUSES SCDS. IV RIGHT FA INFUSING NS @ KVO. DENIES NEEDS. CL IN REACH, WILL CTM
[2019-01-29 20:00] VITALS: BP 166/75
--- NOTE | 2019-01-29 23:45 | NUR ---
DRESSING CHANGED TO RIGHT GROIN/LABIA ORDERED WET TO DRY. REMINDED PT SHE IS NPO AFTER MIDNIGHT, VERBALIZED UNDERSTANDING. CL IN REACH, WILL CTM
[2019-01-30 03:44] VITALS: BP 140/60
[2019-01-30 05:41] LABS: BASOPHILS 0.7 % (0-2); EOSINOPHILS 3.6 % (0-7); HEMATOCRIT 29.4 % (36.0-48.0); HEMOGLOBIN 9.6 g/dL (12-16); IMMATURE GRANULOCYTES 0.4 % (0-5); LYMPHOCYTES 18.5 % (15-50); MCH 30.4 pg (26.0-34.0); MCHC 32.7 g/dL (31.0-37.0); MEAN PLATELET VOLUME 9.7 fL (7.4-10.4); NEUTROPHILS 65.8 % (40-80); PLATELET COUNT 598 10x3/uL (130-400); RBC 3.16 10x6/uL (4.00-5.40); RDW 14.9 % (11.5-14.5); WBC 12.4 10x3/uL (4.8-10.8)
[2019-01-30 06:00] LABS: ALBUMIN 2.5 g/dL (3.4-5.0); ALKALINE PHOSPHATASE 92 U/L (46-116); ALT (SGPT) 26 U/L (10-68); BILIRUBIN - TOTAL 0.31 mg/dL (0.2-1.3); CALC OSMOLALITY 275 mosm/kg (275-300); CALCIUM 8.9 mg/dL (8.5-10.1); CARBON DIOXIDE 23.1 mmol/L (21.0-32.0); CHLORIDE - SERUM 101 mmol/L (98-107); CREATININE - SERUM 0.8 mg/dL (0.6-1.3); GLUCOSE 184 mg/dL (74-106); POTASSIUM - SERUM 3.7 mmol/L (3.5-5.1); PROTEIN - SERUM 7.5 g/dL (6.4-8.2); SODIUM 135 mmol/L (136-145); UREA NITROGEN 15 mg/dL (7-18); eGFR NON AFRICAN AMERICAN 76 mL/min (90-120)
[2019-01-30 06:26] VITALS: BP 140/60
--- NOTE | 2019-01-30 07:24 | NUR ---
PRE OP MEDS GIVEN EXCEPT FOR REGLAN, UNABLE TO PULL FROM PYXIS. NOTIFIED TRANSPORT JESSIE. TRANSPORT JESSIE STATES THAT HE WILL NOTIFY PRE OP PERSONNELL. PT IS AAO X 4. DRESSING NOTED TO RIGHT GROIN AREA. SCANT AMOUNT OF DRAINAGE NOTED. PT DENIES PRESENCE OF N/V. BARRETO CATHETER N OTED AND DRAINING WITHOUT DIFFICULTY. YELLOW URINE NOTED TO BARRETO COLLECTION BAG. PT TRANSPORTED FROM ROOM VIA BED FOR PROCEDURE.
--- NOTE | 2019-01-30 09:51 | NUR ---
NUTRITION F/U PT CURRENTLY NPO FOR PROCEDURE THIS AM. GOOD PO INTAKE PRIOR TO NPO STATUS. WILL PROVIDE DIET WHEN RESUMED, MONITOR INTAKE. RD FOLLOWING
--- NOTE | 2019-01-30 11:31 | NUR ---
SPOKE WITH DR BUNN REGARDING PT DIET. TELEPHONE ORDERS RECD ARE RESUME DIET. WILL PLACE ORDER.
[2019-01-30 17:44] VITALS: BP 138/77
--- NOTE | 2019-01-30 20:00 | NUR ---
ALERT AND AWAKE, RESTING IN BED, DENIES PAIN, SEE SHIFT ASSESSMENT, CALL LIGHT IN REACH
[2019-01-30 20:40] VITALS: BP 141/76
[2019-01-31 00:51] VITALS: BP 134/74
[2019-01-31 04:48] VITALS: BP 123/60
[2019-01-31 06:22] LABS: BASOPHILS 0.4 % (0-2); EOSINOPHILS 3.6 % (0-7); HEMATOCRIT 29.4 % (36.0-48.0); HEMOGLOBIN 9.5 g/dL (12-16); IMMATURE GRANULOCYTES 0.5 % (0-5); MCH 30.3 pg (26.0-34.0); MCHC 32.3 g/dL (31.0-37.0); MCV 93.6 fL (80.0-100.0); MEAN PLATELET VOLUME 9.7 fL (7.4-10.4); NEUTROPHILS 67.5 % (40-80); PLATELET COUNT 549 10x3/uL (130-400); RBC 3.14 10x6/uL (4.00-5.40); RDW 15.2 % (11.5-14.5); WBC 11.9 10x3/uL (4.8-10.8)
[2019-01-31 06:45] LABS: ALBUMIN 2.5 g/dL (3.4-5.0); ANION GAP 14.7 mmol/L (8-16); BILIRUBIN - TOTAL 0.31 mg/dL (0.2-1.3); CALCIUM 8.9 mg/dL (8.5-10.1); CARBON DIOXIDE 23.1 mmol/L (21.0-32.0); CREATININE - SERUM 0.9 mg/dL (0.6-1.3); POTASSIUM - SERUM 3.8 mmol/L (3.5-5.1); PROTEIN - SERUM 7.6 g/dL (6.4-8.2); VANCOMYCIN - TROUGH 22.5 ug/mL (10.0-20.0)
[2019-01-31 08:52] VITALS: BP 141/58
[2019-01-31 12:18] VITALS: BP 155/68
[2019-01-31 17:44] VITALS: BP 156/69
--- NOTE | 2019-01-31 19:13 | NUR ---
I have reviewed this patient and I concur with the Shift Assessment completed by the Licensed Practical Nurse today this shift.
--- NOTE | 2019-01-31 20:05 | NUR ---
LYING IN BED. ALERT AND ORIENTED X4. RESP NONLABORED. SOB WITH EXERTION. O2 @ 3L/NC. DRSG NOTED TO RT PUBIC/LABIA AREA WITH BLOODY DRAINAGE. DENIES PAIN. EDEMA NOTED TO BLE. SCABS NOTED TO BLE. AMBULATORY. SALINE LOCK NOTED TO RT FOREARM. NO DISTRESS. CL IN REACH.
[2019-01-31 21:14] VITALS: BP 125/57
[2019-02-01 01:15] VITALS: BP 135/57
--- NOTE | 2019-02-01 02:34 | NUR ---
HAS SLEPT WELL SO FAR THIS SHIFT. CL IN REACH.
[2019-02-01 04:55] VITALS: BP 120/51
[2019-02-01 04:55] LABS: BASOPHILS 0.6 % (0-2); EOSINOPHILS 4.4 % (0-7); HEMATOCRIT 27.6 % (36.0-48.0); HEMOGLOBIN 9.1 g/dL (12-16); IMMATURE GRANULOCYTES 0.6 % (0-5); LYMPHOCYTES 18.1 % (15-50); MCH 30.4 pg (26.0-34.0); MCV 92.3 fL (80.0-100.0); MEAN PLATELET VOLUME 9.6 fL (7.4-10.4); MONOCYTES 10.9 % (2-11); NEUTROPHILS 65.4 % (40-80); PLATELET COUNT 491 10x3/uL (130-400); RBC 2.99 10x6/uL (4.00-5.40); RDW 14.8 % (11.5-14.5); WBC 12.1 10x3/uL (4.8-10.8)
[2019-02-01 05:24] LABS: ALBUMIN 2.4 g/dL (3.4-5.0); ANION GAP 14.9 mmol/L (8-16); BILIRUBIN - TOTAL 0.25 mg/dL (0.2-1.3); CALCIUM 8.8 mg/dL (8.5-10.1); POTASSIUM - SERUM 3.9 mmol/L (3.5-5.1); PROTEIN - SERUM 7.3 g/dL (6.4-8.2)
[2019-02-01 09:38] VITALS: BP 152/71
--- NOTE | 2019-02-01 09:47 | NUR ---
R FA PIV INFILTRTATED. RESITED 22G PIV TO L FA. FLUSHES WELL. PATENT. DRSG C/D/I
--- NOTE | 2019-02-01 10:49 | NUR ---
MORNING ASSESSMENT COMPLETE. SEE ASSESSMENT FLOWSHEET FOR FURTHER DETAILS. PT LYING IN BED AAO X4 TO PERSON, PLACE, TIME, AND SITUATION. FAM MEMEBER AT BEDSIDE. DENIES NEEDS AT THIS TIME. CL IN REACH. SIDE RAILS UP X3 FOR PT SAFETY.
--- NOTE | 2019-02-01 12:00 | MORECARE ---
CASE MANAGEMENT DISCHARGE SUMMARY PATIENT: LISA RENDON UNIT: [id number] ADM DATE: 01/14/19 AGE: 63 : 53 SEX: F ROOM/BED: D.2207 AUTHOR: CHERRY VILLAREAL PHYSICIAN: REFERRING PHYSICIAN: ASHANTI MANUEL MD DATE OF SERVICE: 02/01/19 Discharge Plan Patient Name: LISA RENDON Facility: [facility]:[place] : 1955 Planned Disposition: Home Anticipated Discharge Date: Discharge Date: Expected LOS: Initial Reviewer: [id number] Initial Review Date: 01/14/2019 Generated: 02/01/19 1:00 pm DCP- Discharge Planning Updated by [email or web address]: Tyra Parra on 01/17/19 1:[address] Patient Name: LISA RENDON Admission Status: ER Accout number: [id number] Admission Date: 01-14-2019 : 1955 Admission Diagnosis: Attending: ASHANTI MANUEL Current LOS: 3 Anticipated DC Date: Planned Disposition: Home Primary Insurance: MEDICARE A & B Discharge Planning Comments: CM met with patient to complete initial dc planning assessment. CM educated patient on the CM role and verbal consent given by patient to complete assessment. Patient lives at home with her where she is independent with her care. At discharge patient plans to return home and feels this is a safe discharge. Viola, will be her refrigerated company driver home. CM discussed availability of home health, rehab services, and medical equipment. Patient stated that she has a cane, walker, wheelchair, shower chair, and glucometer at home. Patient denied known discharge needs at this time. Did not feel like she needed home health either. CM will continue to follow and will assist as needed with dc plans/needs. Tire Cord Weaver: Tyra Parra DCPIA - Discharge Planning Initial Assessment Updated by [id number]: Tyra Parra on 01/17/19 2:54 pm * Is the patient Alert and Oriented? Yes * How many steps to enter\exit or inside your home? RAMP * PCP [place] * [facility] [facility] * Preadmission Environment Home with Family * ADLs Independent * Equipment Bedside Commode Elevated Toliet Seat Glucometer Nebulizer Rolling Walker Shower Chair Walker Wheelchair * List name and contact numbers for known caregivers / representatives who currently or will assist patient after discharge: VIOLA [phone] * Verbal permission to speak to the caregivers and representatives has been obtained from the patient. Yes * Community resources currently utilized None * Additional services required to return to the preadmission environment? No * Can the patient safely return to the preadmission environment? Yes * Has this patient been hospitalized within the prior 30 days at any hospital? No Coverage Notice Reviewer: [id number] Parra Notice Issued Date-Time: 02/01/2019 11:55 Notice Type: IM Discharge Notice Notice Delivered To: Patient Relationship to Patient: Ethylene Plant Operator Name: Delivery Method: HAND - Hand Delivered Ethel Days: Prior Verbal Notification: Recipient Understood Notice: Yes Recipient Signature: Yes Med Rec Note Co-signed by Attending: Coverage Notice Comment: Reviewer: [id number] Parra Notice Issued Date-Time: 02/01/2019 11:55 Notice Type: Patient Choice Letter Notice Delivered To: Patient Relationship to Patient: Ethylene Plant Operator Name: Delivery Method: - Ethel Days: Prior Verbal Notification: Recipient Understood Notice: Yes Recipient Signature: Yes Med Rec Note Co-signed by Attending: Coverage Notice Comment: MARIS Villaseñor DP export: 01/17/19 2:01 pm Patient Name: LISA RENDON Page [phone] at 1200 All edits/amendments must be made on the electronic document DICTATION DATE: 02/01/19 1159 TELEPRINTER: ADE 02/01/19 1159 RPT#: [id number] DC DATE: STATUS: ADM IN [facility] [address] [place] [address] END OF REPORT
--- NOTE | 2019-02-01 12:10 | MORECARE ---
CASE MANAGEMENT DISCHARGE SUMMARY PATIENT: LISA RENDON UNIT: [id number] ADM DATE: 01/14/19 AGE: 63 : 54 SEX: F ROOM/BED: D.2207 AUTHOR: CHERRY VILLAREAL PHYSICIAN: REFERRING PHYSICIAN: ASHANTI MANUEL MD DATE OF SERVICE: 02/01/19 Discharge Plan Patient Name: LISA RENDON Facility: [facility]:[place] : 1955 Planned Disposition: Home Anticipated Discharge Date: Discharge Date: Expected LOS: Initial Reviewer: [id number] Initial Review Date: 01/14/2019 Generated: 02/01/19 1:09 pm Comments DCP- Discharge Planning Updated by [email or web address]: Tyra Parra on 02/01/19 11:[address] PATIENT TO BE DISCHARGED SOON, IMM SERVED AND EXPLAINED. ORDER RECEIVED TO SET UP HOME HEALTH. MARIS WITH [facility]. PATIENT ASKED IF SHE COULD GET A HOSPITAL BED ([facility] FOR [facility]) I CALLED [facility] TO SEE IF SHE WOULD QUALIFY FOR A BED AND THEY WILL HAVE THE PERSON WHO DOES THESE CALL ME BACK. I EXPLAINED TO HER THAT THERE IS CERTAIN CRITERIA TO GET A HOSPITAL BED DCP- Discharge Planning Updated by [id number]: Tyra Parra on 01/17/19 1:[address] Patient Name: LISA RENDON Admission Status: ER Accout number: [id number] Admission Date: 01-14-2019 : 1955 Admission Diagnosis: Attending: ASHANTI MANUEL Current LOS: 3 Anticipated DC Date: Planned Disposition: Home Primary Insurance: MEDICARE A & B Discharge Planning Comments: CM met with patient to complete initial dc planning assessment. CM educated patient on the CM role and verbal consent given by patient to complete assessment. Patient lives at home with her where she is independent with her care. At discharge patient plans to return home and feels this is a safe discharge. Viola, will be her auto parts delivery driver home. CM discussed availability of home health, rehab services, and medical equipment. Patient stated that she has a cane, walker, wheelchair, shower chair, and glucometer at home. Patient denied known discharge needs at this time. Did not feel like she needed home health either. CM will continue to follow and will assist as needed with dc plans/needs. Hand Mica Plate Layer: Tyra Parra DCPIA - Discharge Planning Initial Assessment Updated by [email or web address]: Tyra Parra on 01/17/19 2:54 pm * Is the patient Alert and Oriented? Yes * How many steps to enter\exit or inside your home? RAMP * PCP WOLOF * Pharmacy [facility] [address] * Preadmission Environment Home with Family * ADLs Independent * Equipment Bedside Commode Elevated Toliet Seat Glucometer Nebulizer Rolling Walker Shower Chair Walker Wheelchair * List name and contact numbers for known caregivers / representatives who currently or will assist patient after discharge: VIOLA [phone] * Verbal permission to speak to the caregivers and representatives has been obtained from the patient. Yes * Community resources currently utilized None * Additional services required to return to the preadmission environment? No * Can the patient safely return to the preadmission environment? Yes * Has this patient been hospitalized within the prior 30 days at any hospital? No Coverage Notice Reviewer: [id number] Madelin Parra Notice Issued Date-Time: 02/01/2019 11:55 Notice Type: IM Discharge Notice Notice Delivered To: Patient Relationship to Patient: Music Journalist Name: Delivery Method: HAND - Hand Delivered Ethel Days: Prior Verbal Notification: Recipient Understood Notice: Yes Recipient Signature: Yes Med Rec Note Co-signed by Attending: Coverage Notice Comment: Reviewer: [id number] Parra Notice Issued Date-Time: 02/01/2019 11:55 Notice Type: Patient Choice Letter Notice Delivered To: Patient Relationship to Patient: Music Journalist Name: Delivery Method: - Ethel Days: Prior Verbal Notification: Recipient Understood Notice: Yes Recipient Signature: Yes Med Rec Note Co-signed by Attending: Coverage Notice Comment: MARIS Villaseñor DP export: 02/01/19 11:00 a Patient Name: LISA RENDON Page [phone] at 1210 All edits/amendments must be made on the electronic document DICTATION DATE: 02/01/19 1209 ZIPPER CUTTER: ADE 02/01/19 120 RPT#: [id number] DC DATE: STATUS: ADM IN [facility] [address] [id number] END OF REPORT
--- NOTE | 2019-02-01 12:17 | MORECARE ---
CASE MANAGEMENT DISCHARGE SUMMARY PATIENT: LISA RENDON UNIT: [id number] ADM DATE: 01/14/19 AGE: 63 : 53 SEX: F ROOM/BED: D.2207 AUTHOR: CHERRY VILLAREAL PHYSICIAN: REFERRING PHYSICIAN: ASHANTI MANUEL MD DATE OF SERVICE: 02/01/19 Discharge Plan Patient Name: LISA RENDON Facility: [facility]:[place] : 1955 Planned Disposition: Home Anticipated Discharge Date: Discharge Date: Expected LOS: Initial Reviewer: [email or web address] Initial Review Date: 01/14/2019 Generated: 02/01/19 1:16 pm Comments DCP- Discharge Planning Updated by [email or web address]: Tyra Parra on 02/01/19 11:[address] PATIENT TO BE DISCHARGED SOON, IMM SERVED AND EXPLAINED. ORDER RECEIVED TO SET UP HOME HEALTH. MARIS WITH [facility]. PATIENT ASKED IF SHE COULD GET A HOSPITAL BED ([facility] FOR [facility]) I CALLED [facility] TO SEE IF SHE WOULD QUALIFY FOR A BED AND THEY WILL HAVE THE PERSON WHO DOES THESE CALL ME BACK. I EXPLAINED TO HER THAT THERE IS CERTAIN CRITERIA TO GET A HOSPITAL BED DCP- Discharge Planning Updated by [email or web address]: Tyra Parra on 01/17/19 1:[address] Patient Name: LISA RENDON Admission Status: ER Accout number: [id number] Admission Date: 01-14-2019 : 1955 Admission Diagnosis: Attending: ASHANTI MANUEL Current LOS: 3 Anticipated DC Date: Planned Disposition: Home Primary Insurance: MEDICARE A & B Discharge Planning Comments: CM met with patient to complete initial dc planning assessment. CM educated patient on the CM role and verbal consent given by patient to complete assessment. Patient lives at home with her where she is independent with her care. At discharge patient plans to return home and feels this is a safe discharge. Viola, will be her tractor driver teamster home. CM discussed availability of home health, rehab services, and medical equipment. Patient stated that she has a cane, walker, wheelchair, shower chair, and glucometer at home. Patient denied known discharge needs at this time. Did not feel like she needed home health either. CM will continue to follow and will assist as needed with dc plans/needs. Electrical Design Technician: Tyra Parra DCPIA - Discharge Planning Initial Assessment Updated by [email or web address]: Tyra Parra on 01/17/19 2:54 pm * Is the patient Alert and Oriented? Yes * How many steps to enter\exit or inside your home? RAMP * PCP [place]ET[place] * Pharmacy [facility] * Preadmission Environment Home with Family * ADLs Independent * Equipment Bedside Commode Elevated Toliet Seat Glucometer Nebulizer Rolling Walker Shower Chair Walker Wheelchair * List name and contact numbers for known caregivers / representatives who currently or will assist patient after discharge: VIOLA [phone] * Verbal permission to speak to the caregivers and representatives has been obtained from the patient. Yes * Community resources currently utilized None * Additional services required to return to the preadmission environment? No * Can the patient safely return to the preadmission environment? Yes * Has this patient been hospitalized within the prior 30 days at any hospital? No External [facility] Contact Date: Service Request Date: Service Type: Resolution: Reviewer: Comments: Coverage Notice Reviewer: [email or web address] Madelin Parra Notice Issued Date-Time: 02/01/2019 11:55 Notice Type: IM Discharge Notice Notice Delivered To: Patient Relationship to Patient: Capacity Management Specialist Name: Delivery Method: HAND - Hand Delivered Ethel Days: Prior Verbal Notification: Recipient Understood Notice: Yes Recipient Signature: Yes Med Rec Note Co-signed by Attending: Coverage Notice Comment: Reviewer: [email or web address] Madelin Parra Notice Issued Date-Time: 02/01/2019 11:55 Notice Type: Patient Choice Letter Notice Delivered To: Patient Relationship to Patient: Capacity Management Specialist Name: Delivery Method: - Ethel Days: Prior Verbal Notification: Recipient Understood Notice: Yes Recipient Signature: Yes Med Rec Note Co-signed by Attending: Coverage Notice Comment: MARIS Villaseñor DP export: 02/01/19 11:10 a Patient Name: LISA RENDON Page 99809 at 1217 All edits/amendments must be made on the electronic document DICTATION DATE: 02/01/19 1216 BOOKS BINDER: ADE 02/01/19 1216 RPT#: [id number] DC DATE: STATUS: ADM IN [facility] [address] [place] [address] END OF REPORT
[2019-02-01] MEDS ORDERED: DIFLUCAN100 MG PO (13:36)
[2019-02-01] MEDS ORDERED: FLORAJEN3 CAPS460 MG PO (13:37)
[2019-02-01 13:55] VITALS: BP 153/65
[2019-02-01 17:34] VITALS: BP 142/50
--- NOTE | 2019-02-01 19:34 | OP ---
PATIENT NAME: LISA RENDON MEDICAL RECORD: [id number] :[birth year] LOCATION:D.[facility] ADMISSION DATE:01/14/19 SURGEON: DEMETRIUS GEE MD DATE OF OPERATION: 01/15/2019 PREOPERATIVE DIAGNOSIS: Right vulvar/labial abscess. POSTOPERATIVE DIAGNOSIS: Right vulvar/labial abscess. PROCEDURE: Excision and debridement/drainage of vulvar abscess. SURGEON: Demetrius Gee MD INTRAVENOUS FLUIDS: Per anesthesia record. SPECIMENS: Included necrotic tissue and pus. Cultures were also taken. COMPLICATIONS: None apparent. ANESTHESIA: General endotracheal. DESCRIPTION OF THE PROCEDURE: The patient was taken to the operating room where regional anesthesia was achieved without difficulty. The patient then prepped and draped in normal sterile fashion in the dorsal lithotomy position in the [facility]. The thigh labia and lower abdominal area was then prepped with ChloraPrep and the abscess was then examined under anesthesia. It had a part extending into the mons where there was a purulent drainage and there was also another skin defect above the ischiorectal fossa on the right, which was also draining. An 11 blade was then used to make a downward incision from the mons area of drainage where copious pus was then brought forth from the underlying tissue, cultures then performed for aerobic and anaerobic bacteria. Careful dissection was performed downward to the level of the fascia. This was extended downward from the mons on the right to the ischial tuberosity. Careful exploration of all tissue plane was performed. Necrotic tissue was excised using scalpel, Mary and Metzenbaum scissors. Minimal bleeding was noted at that time. High pressure suction was then used to clear off plus, bacteria, and necrotic debris. Hydrogen peroxide was then used to wash the wound several times. The wound was then packed with a Kerlix. The patient was taken to recovery room in stable without incident. TRANSINT:[id number] Voice Confirmation ID: [id number] DOCUMENT ID: [id number] DEMETRIUS GEE MD at 1934 CC: [id number] DICTATION DATE: 01/28/19 152 HOME HEALTH BILLING SPECIALIST: 01/28/191950 ADM IN [place] [place] [id number] [place] [address]
--- NOTE | 2019-02-01 19:34 | OP ---
PATIENT NAME: LISA RENDON MEDICAL RECORD: [id number] :[birth year] LOCATION:D.[facility] ADMISSION DATE:01/14/19 SURGEON: DEMETRIUS GEE MD DATE OF OPERATION: 01/23/2019 PREOPERATIVE DIAGNOSES: 1. Open labial/vulvar abscess. 2. Necrotic debris. POSTOPERATIVE DIAGNOSES: 1. Open labial/vulvar abscess. 2. Necrotic debris. PROCEDURE: Debridement of labial abscess. SURGEON: Demetrius Gee MD ANESTHESIA: General endotracheal. INTRAVENOUS FLUIDS: Per anesthesia record. SPECIMENS: Necrotic debris and cultures. FINDINGS: Viable-appearing open vulvar wound from previous incision and drainage with a new area at the superior aspect of the incision of purulent drainage. COMPLICATIONS: None apparent. SPECIMENS: Necrotic debris. DESCRIPTION OF THE PROCEDURE: The patient taken to the operating room where general anesthesia was achieved without difficulty. The patient was then prepped and draped in the normal sterile fashion in the dorsal lithotomy position in the [facility]. The open wound was unpacked and cleaned with Betadine thoroughly prior to initiating the procedure. This was then thoroughly dried and the open wound was explored carefully at the superior aspect of the incision. Dissection of the Metzenbaum scissors revealed an approximately 3 cm abscess, which was then opened with an #11-blade thoroughly cleaned and necrotic tissue removed. Several areas of nonviable tissues were then removed from otherwise normal healthy granulating wound. High power suction was then used to suction all the necrotic debris and fibrin discharge. A curette was used to gently cause gentle bleeding to increased trophoblastic investment into the wound. Following the procedure, the wound was packed. The patient was transferred to the postanesthesia recovery stable without incident. TRANSINT:[id number] Voice Confirmation ID: [id number] DOCUMENT ID: [id number] OPERATIVE REPORT [id number] JULIETAJAYLYNLENORAROSMERY DEMETRIUS GEE MD at 1934 CC: [id number] DICTATION DATE: 01/28/19 1526 FIELD SPEC: 01/28/19 194 ADM IN [place] [place] [address]
[2019-02-01 20:00] VITALS: BP 143/57
--- NOTE | 2019-02-01 20:20 | NUR ---
PT ALERT X 4. BREATH SOUNDS CLEAR BILAT. IV TO LEFT FOREARM, SALINE LOCKED. DRESSING TO ELIZABETH AREA CHANGED, MODERATE DRAINAGE NOTED. PT REPORTING NO PAIN AT THIS TIME. BED LOW, CALL LIGHT IN REACH. NO OTHER NEEDS AT THIS TIME.
[2019-02-02 01:08] VITALS: BP 140/59
[2019-02-02 05:21] VITALS: BP 141/63
[2019-02-02 07:07] LABS: BASOPHILS 0.5 % (0-2); EOSINOPHILS 4.6 % (0-7); HEMATOCRIT 28.4 % (36.0-48.0); HEMOGLOBIN 9.2 g/dL (12-16); IMMATURE GRANULOCYTES 0.5 % (0-5); LYMPHOCYTES 20.3 % (15-50); MCH 29.8 pg (26.0-34.0); MCHC 32.4 g/dL (31.0-37.0); MCV 91.9 fL (80.0-100.0); MEAN PLATELET VOLUME 9.6 fL (7.4-10.4); MONOCYTES 11.2 % (2-11); NEUTROPHILS 62.9 % (40-80); PLATELET COUNT 470 10x3/uL (130-400); RBC 3.09 10x6/uL (4.00-5.40); RDW 14.8 % (11.5-14.5); WBC 10.1 10x3/uL (4.8-10.8)
[2019-02-02 07:12] LABS: ALBUMIN 2.6 g/dL (3.4-5.0); ANION GAP 14.3 mmol/L (8-16); BILIRUBIN - TOTAL 0.29 mg/dL (0.2-1.3); CALCIUM 9.5 mg/dL (8.5-10.1); CARBON DIOXIDE 24.6 mmol/L (21.0-32.0); CREATININE - SERUM 0.9 mg/dL (0.6-1.3); POTASSIUM - SERUM 3.9 mmol/L (3.5-5.1); PROTEIN - SERUM 7.8 g/dL (6.4-8.2)
--- NOTE | 2019-02-02 07:46 | NUR ---
EYES CLOSED, EASILY AROUSED BY VOICE, IV TO LEFT FOREARM. PATENT, SALINE LOCKED, ON ROOM AIR, EVEN UNLABORED BREATHING, DENIES ANY CURRENT NEEDS OR DISCOMFORTS, BED LOWERED AND LOCKED, CALL LIGHT WITHIN REACH.CPOC
--- NOTE | 2019-02-02 09:21 | MORECARE ---
CASE MANAGEMENT DISCHARGE SUMMARY PATIENT: LISA RENDON UNIT: [id number] ADM DATE: 01/14/19 AGE: 63 : 53 SEX: F ROOM/BED: D.2207 AUTHOR: CHERRY VILLAREAL PHYSICIAN: REFERRING PHYSICIAN: ASHANTI MANUEL MD DATE OF SERVICE: 02/02/19 Discharge Plan Patient Name: LISA RENDON Facility: [facility]:[place] : 1955 Planned Disposition: Home Anticipated Discharge Date: Discharge Date: Expected LOS: Initial Reviewer: [email or web address] Initial Review Date: 01/14/2019 Generated: 02/02/19 10:21 am Comments DCP- Discharge Planning Updated by [email or web address]: Tyra Parra on 02/02/19 8:[address] Patient will be discharging today with [facility]. I will send clinicals to her . to be her residential recycle driver home today DCP- Discharge Planning Updated by [email or web address]: Tyra Parra on 02/01/19 11:[address] PATIENT TO BE DISCHARGED SOON, IMM SERVED AND EXPLAINED. ORDER RECEIVED TO SET UP HOME HEALTH. MARIS WITH [facility]. PATIENT ASKED IF SHE COULD GET A HOSPITAL BED ([facility] FOR [facility]) I CALLED [facility] TO SEE IF SHE WOULD QUALIFY FOR A BED AND THEY WILL HAVE THE PERSON WHO DOES THESE CALL ME BACK. I EXPLAINED TO HER THAT THERE IS CERTAIN CRITERIA TO GET A HOSPITAL BED DCP- Discharge Planning Updated by [email or web address]: Tyra Parra on 01/17/19 1:[address] Patient Name: LISA RENDON Admission Status: ER Accout number: [id number] Admission Date: 01-14-2019 : 1955 Admission Diagnosis: Attending: ASHANTI MANUEL Current LOS: 3 Anticipated DC Date: Planned Disposition: Home Primary Insurance: MEDICARE A & B Discharge Planning Comments: CM met with patient to complete initial dc planning assessment. CM educated patient on the CM role and verbal consent given by patient to complete assessment. Patient lives at home with her where she is independent with her care. At discharge patient plans to return home and feels this is a safe discharge. Viola, will be her residential recycle driver home. CM discussed availability of home health, rehab services, and medical equipment. Patient stated that she has a cane, walker, wheelchair, shower chair, and glucometer at home. Patient denied known discharge needs at this time. Did not feel like she needed home health either. CM will continue to follow and will assist as needed with dc plans/needs. Key Account Manager: Tyra Parra DCPIA - Discharge Planning Initial Assessment Updated by [email or web address]: Tyra Parra on 01/17/19 2:54 pm * Is the patient Alert and Oriented? Yes * How many steps to enter\exit or inside your home? RAMP * PCP IRANIAN * Pharmacy [facility] * Preadmission Environment Home with Family * ADLs Independent * Equipment Bedside Commode Elevated Toliet Seat Glucometer Nebulizer Rolling Walker Shower Chair Walker Wheelchair * List name and contact numbers for known caregivers / representatives who currently or will assist patient after discharge: VIOLA [phone] * Verbal permission to speak to the caregivers and representatives has been obtained from the patient. Yes * Community resources currently utilized None * Additional services required to return to the preadmission environment? No * Can the patient safely return to the preadmission environment? Yes * Has this patient been hospitalized within the prior 30 days at any hospital? No Coverage Notice Reviewer: [email or web address] Madelin Parra Notice Issued Date-Time: 02/01/2019 11:55 Notice Type: IM Discharge Notice Notice Delivered To: Patient Relationship to Patient: Fishing Tool Operator Name: Delivery Method: HAND - Hand Delivered Ethel Days: Prior Verbal Notification: Recipient Understood Notice: Yes Recipient Signature: Yes Med Rec Note Co-signed by Attending: Coverage Notice Comment: Reviewer: [email or web address] Madelin Parra Notice Issued Date-Time: 02/01/2019 11:55 Notice Type: Patient Choice Letter Notice Delivered To: Patient Relationship to Patient: Fishing Tool Operator Name: Delivery Method: - Ethel Days: Prior Verbal Notification: Recipient Understood Notice: Yes Recipient Signature: Yes Med Rec Note Co-signed by Attending: Coverage Notice Comment: MARIS Villaseñor DP export: 02/01/19 11:17 a Patient Name: LISA RENDON Page [phone] at 0921 All edits/amendments must be made on the electronic document DICTATION DATE: 02/02/19920 PRODUCTION WELDER: ADE 02/02/19920 RPT#: [id number] DC DATE: STATUS: ADM IN [facility] [address] [place] [address] END OF REPORT
--- NOTE | 2019-02-02 09:57 | NUR ---
PERINEAL INCISION CLEAN AND DRY, SCANT AMOUNT OF SEROSANGIOUS DRAINAGE, SLIGHT SWELLING, APPLIED STERILE 4X4 WITH ABD WITH MESH UNDERWEAR TO SECURE, DENIES ANY CURRENT NEEDS OR DISCOMFORTS, BED LOWERED AND LOCKED, CALL LIGHT WITHIN REACH. CPOC
[2019-02-02 10:30] VITALS: BP 154/76
--- NOTE | 2019-02-02 11:09 | NUR ---
DISCHARGE INSTRUCTIONS GIVEN, VERBALIZES UNDERSTANDING. IV TO LEFT FOREARM DISCONTINUED WITH CATHTER TIP INTACT. DENIES ANY CURRENT CONCERNS OR QUESTIONS. TRANSPORTED OFF UNIT VIA WHEELCHAIR.
--- NOTE | 2019-02-05 08:42 | MORECARE ---
CASE MANAGEMENT DISCHARGE SUMMARY PATIENT: LISA RENDON UNIT: [id number] ADM DATE: 01/14/19 AGE: 63 : 54 SEX: F ROOM/BED: D.2207 AUTHOR: CHERRY VILLAREAL PHYSICIAN: REFERRING PHYSICIAN: ASHANTI MANUEL MD DATE OF SERVICE: 02/05/19 Discharge Plan Patient Name: LISA RENDON Facility: [facility]:[place] : 1955 Planned Disposition: Home Anticipated Discharge Date: Discharge Date: 02/02/2019 Expected LOS: Initial Reviewer: [email or web address] Initial Review Date: 01/14/2019 Generated: 02/05/19 9:42 am Comments DCP- Discharge Planning Updated by [email or web address]: Tyra Parra on 02/02/19 8:[address] Patient will be discharging today with [facility]. I will send clinicals to her . 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 ORDER RECEIVED TO SET UP HOME HEALTH. MARIS WITH [facility]. PATIENT ASKED IF SHE COULD GET A HOSPITAL BED ([facility] FOR [facility]) I CALLED [facility] TO SEE IF SHE WOULD QUALIFY FOR A BED AND THEY WILL HAVE THE PERSON WHO DOES THESE CALL ME BACK. I EXPLAINED TO HER THAT THERE IS CERTAIN CRITERIA TO GET A HOSPITAL BED DCP- Discharge Planning Updated by [email or web address]: Tyra Parra on 01/17/19 1:[address] Patient Name: LISA RENDON Admission Status: ER Accout number: [id number] Admission Date: 01-14-2019 : 1955 Admission Diagnosis: Attending: ASHANTI MANUEL Current LOS: 3 Anticipated DC Date: Planned Disposition: Home Primary Insurance: MEDICARE A & B Discharge Planning Comments: CM met with patient to complete initial dc planning assessment. CM educated patient on the CM role and verbal consent given by patient to complete assessment. Patient lives at home with her where she is independent with her care. At discharge patient plans to return home and feels this is a safe discharge. 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 CM discussed availability of home health, rehab services, and medical equipment. Patient stated that she has a cane, walker, wheelchair, shower chair, and glucometer at home. Patient denied known discharge needs at this time. Did not feel like she needed home health either. CM will continue to follow and will assist as needed with dc plans/needs. Plastic Die Maker Apprentice: Tyra Parra DCPIA - Discharge Planning Initial Assessment Updated by [email or web address]: Tyra Parra on 01/17/19 2:54 pm * Is the patient Alert and Oriented? Yes * How many steps to enter\exit or inside your home? RAMP * PCP CHINESE * Pharmacy [facility] * Preadmission Environment Home with Family * ADLs Independent * Equipment Bedside Commode Elevated [place] Seat Glucometer Nebulizer Rolling Walker Shower Chair Walker Wheelchair * List name and contact numbers for known caregivers / representatives who currently or will assist patient after discharge: VIOLA [phone] * Verbal permission to speak to the caregivers and representatives has been obtained from the patient. Yes * Community resources currently utilized None * Additional services required to return to the preadmission environment? No * Can the patient safely return to the preadmission environment? Yes * Has this patient been hospitalized within the prior 30 days at any hospital? No Coverage Notice Reviewer: [email or web address] Madelin Parra Notice Issued Date-Time: 02/01/2019 11:55 Notice Type: IM Discharge Notice Notice Delivered To: Patient Relationship to Patient: Autocad Name: Delivery Method: HAND - Hand Delivered Ethel Days: Prior Verbal Notification: Recipient Understood Notice: Yes Recipient Signature: Yes Med Rec Note Co-signed by Attending: Coverage Notice Comment: Reviewer: [id number] Madelin Parra Notice Issued Date-Time: 02/01/2019 11:55 Notice Type: Patient Choice Letter Notice Delivered To: Patient Relationship to Patient: Autocad Name: Delivery Method: - Ethel Days: Prior Verbal Notification: Recipient Understood Notice: Yes Recipient Signature: Yes Med Rec Note Co-signed by Attending: Coverage Notice Comment: [facility]IS ESPOSITO Last DP export: 02/02/19 8:21 a Patient Name: LISA RENDON Page [id number] at 0842 All edits/amendments must be made on the electronic document DICTATION DATE: 02/05/19840 BEREAVEMENT PROGRAM COORDINATOR: ADE 02/05/1942 RPT#: [id number] DC DATE:02/02/19 STATUS: DIS IN [facility] [address] [place] [address] END OF REPORT
== END 2019-02-02 11:10 | disposition home health service (06) | DRG 746 ==
LOC: D.ER 16:46 → D.MS 18:47
PROVIDERS: Emergency Medicine; Family Medicine; Obstetrics & Gynecology; Student in an Organized Health Care Education/Training Program; ADMIT Family Medicine; ATTEND Family Medicine
PROC: 0HB9XZZ Excision of Perineum Skin, External Approach (ICD-10-PCS; principal; 2019-01-16)
PROC: 0U9M0ZZ Drainage of Vulva, Open Approach (ICD-10-PCS; 2019-01-16)
PROC: 0UBM0ZZ Excision of Vulva, Open Approach (ICD-10-PCS; 2019-01-23)
PROC: 0UQM0ZZ Repair Vulva, Open Approach (ICD-10-PCS; 2019-01-30)
DX: N76.2 Acute vulvitis (principal); E87.1 Hypo-osmolality and hyponatremia; N76.4 Abscess of vulva; E11.9 Type 2 diabetes mellitus without complications; E83.42 Hypomagnesemia; I10 Essential (primary) hypertension; K21.9 Gastro-esophageal reflux disease without esophagitis; F32.9 Major depressive disorder, single episode, unspecified; N73.2 Unspecified parametritis and pelvic cellulitis; E88.81 Metabolic syndrome and other insulin resistance

== ENCOUNTER 2019-02-14 12:37 | Observation (INO) | payer MEDICARE ==
[~2019-02-14] VITALS: Ht 157.5 cm; Wt 88.6 kg
[~2019-02-14 12:37] MED LIST: CARDIZEM 90 MG90 MG PO; CELEXA40 MG PO; COZAAR50 MG PO; CYCLOBENZAPRINE10 MG PO; DICLOFENAC SODI50 MG PO; DIFLUCAN100 MG PO; FLORAJEN3 CAPS460 MG PO; GLUCOPHAGE500 MG PO; HYDROCODON-ACE1 EAC7 PO; JANUVIA50 MG PO; LOPID600 MG PO; MIRAPEX0.25 MG PO; NOVOLOG100 UNIT/1 SC; OCUFLOX 0.3 % OP5 ML EACH EYE; PRED-FORTE 1% OP5 ML LEFT EYE; TRESIBA FLEX INJ 200 SC; TRESIBA FLEX INJ 200 SQ; XALATAN 0.0052.5 ML EACH EYE
--- NOTE | 2019-02-14 13:10 | NUR ---
TO ROOM [address] SARGENT OFFICE.ORIENTATION TO ROOM.CALL LIGHT IN REACH
[2019-02-14 13:39] LABS: BASOPHILS 0.4 % (0-2); EOSINOPHILS 4.5 % (0-7); HEMOGLOBIN 9.6 g/dL (12-16); IMMATURE GRANULOCYTES 0.4 % (0-5); LYMPHOCYTES 25.3 % (15-50); MCH 30.3 pg (26.0-34.0); MCHC 33.1 g/dL (31.0-37.0); MCV 91.5 fL (80.0-100.0); MEAN PLATELET VOLUME 9.9 fL (7.4-10.4); MONOCYTES 7.5 % (2-11); NEUTROPHILS 61.9 % (40-80); PLATELET COUNT 452 10x3/uL (130-400); RBC 3.17 10x6/uL (4.00-5.40); RDW 15.3 % (11.5-14.5)
--- NOTE | 2019-02-14 14:50 | NUR ---
PAGE TO DR. BUNN FOR FURTHER ORDERS
[2019-02-14] MEDS ORDERED: LEVOFLOXACIN500 MG PO ×2 (15:10→15:11)
[2019-02-14 16:03] VITALS: BP 145/71; BMI 35.7
[2019-02-14 17:43] VITALS: BP 133/59
--- NOTE | 2019-02-14 18:47 | NUR ---
REMAINS WITHOUT NEEDS.CONT PLAN OF CARE
--- NOTE | 2019-02-14 20:00 | NUR ---
ASSESSMENT PER FLOWSHEET. IV PATENT RT ARM SALINE LOCKED. ALERT/ORIENTED X3 DRSG TO RT VAGINAL AREA C/D/I X2 SITES.SR UP X2 CALL LIGHT WITHIN REACH
[2019-02-14 21:00] VITALS: BP 132/57
--- NOTE | 2019-02-14 22:15 | NUR ---
BLOOD PERMIT SIGNED AND WITNESSED AND PLACED ON CHART.
--- NOTE | 2019-02-14 22:30 | NUR ---
FIRST UNIT OF PACKED RED BLOOD CELLS STARTED PER [facility] STATED BLOOD PRODUCT HAS BEEN READY SINCE 1418 TODAY. MONITORING VS PER PROTOCAL.
[2019-02-14 23:00] VITALS: BP 138/76
[2019-02-14 23:15] VITALS: BP 154/74
[2019-02-14 23:45] VITALS: BP 149/79
--- NOTE | 2019-02-15 | NUR ---
BLOOD INFUSING WELL NO REACTIONS NOTED.
[2019-02-15 00:46] VITALS: BP 133/63
[2019-02-15 01:30] VITALS: BP 134/69
--- NOTE | 2019-02-15 01:48 | NUR ---
BLOOD CONTIUES NO REACTION NOTED.
[2019-02-15 02:10] VITALS: BP 136/55
--- NOTE | 2019-02-15 03:15 | NUR ---
BLOOD COMPLETED NO REACTION
[2019-02-15 03:20] VITALS: BP 135/59
[2019-02-15 05:06] VITALS: BP 122/61
--- NOTE | 2019-02-15 06:35 | NUR ---
RESTING DENIES NEEDS
[2019-02-15 06:47] LABS: HEMATOCRIT 31.6 % (36.0-48.0); HEMOGLOBIN 10.7 g/dL (12-16); MCH 30.8 pg (26.0-34.0); MCHC 33.9 g/dL (31.0-37.0); MCV 91.1 fL (80.0-100.0); MEAN PLATELET VOLUME 10.4 fL (7.4-10.4); PLATELET COUNT 363 10x3/uL (130-400); RBC 3.47 10x6/uL (4.00-5.40); RDW 14.9 % (11.5-14.5); WBC 11.3 10x3/uL (4.8-10.8)
--- NOTE | 2019-02-15 08:24 | NUR ---
PT C/O PERALTA. PT BP IS 153/80 NO MEDS RESTARTED PT HOPING TO GO HOME TODAY. ORDERED PT TYLENOL FOR PERALTA. CONTINUE WITH PLAN OF CARE
[2019-02-15 08:30] VITALS: BP 153/80
[2019-02-15 09:35] LABS: EOSINOPHILS 8 % (0-7); LYMPHOCYTES 28 % (15-50); MONOCYTES 9 % (2-11); NEUTROPHILS 54 % (40-80); PLATELET ESTIMATE NORMAL
--- NOTE | 2019-02-15 10:13 | NUR ---
PER DR BUNN PT MAY BE DC. CONTINUE LEVAQUIN ORDERED FOLOW UP TOMORROW AT 0815. DC PT IV
[2019-02-15 10:20] VITALS: Ht 157.5 cm; Wt 88.6 kg
== END 2019-02-15 12:44 | disposition home or self-care (01) ==
LOC: D.MS 12:37 → OBSVTIME 12:38 → D.MS 02-15 12:44
PROVIDERS: ADMIT Obstetrics & Gynecology; ATTEND Obstetrics & Gynecology
DX: D64.9 Anemia, unspecified (principal); E11.9 Type 2 diabetes mellitus without complications; I10 Essential (primary) hypertension; K21.9 Gastro-esophageal reflux disease without esophagitis

== ENCOUNTER 2019-02-16 10:46 | Inpatient (IN) | payer MEDICARE ==
[~2019-02-16] VITALS: Ht 157.5 cm; Wt 89.8 kg
[~2019-02-16 10:46] MED LIST changes: +LEVOFLOXACIN500 MG PO
--- NOTE | 2019-02-16 11:18 | NUR ---
BARBARA IN TO SEE PT.
[2019-02-16 11:39] LABS: BASOPHILS 0.4 % (0-2); HEMATOCRIT 32.4 % (36.0-48.0); HEMOGLOBIN 11.1 g/dL (12-16); IMMATURE GRANULOCYTES 0.6 % (0-5); LYMPHOCYTES 22.2 % (15-50); MCH 30.9 pg (26.0-34.0); MCHC 34.3 g/dL (31.0-37.0); MCV 90.3 fL (80.0-100.0); MEAN PLATELET VOLUME 9.6 fL (7.4-10.4); MONOCYTES 7.7 % (2-11); NEUTROPHILS 65.1 % (40-80); PLATELET COUNT 404 10x3/uL (130-400); RBC 3.59 10x6/uL (4.00-5.40); RDW 14.7 % (11.5-14.5); WBC 12.4 10x3/uL (4.8-10.8)
[2019-02-16 11:55] LABS: ALBUMIN 3.1 g/dL (3.4-5.0); ANION GAP 15.4 mmol/L (8-16); BILIRUBIN - TOTAL 0.35 mg/dL (0.2-1.3); CALCIUM 9.5 mg/dL (8.5-10.1); CREATININE - SERUM 0.9 mg/dL (0.6-1.3); POTASSIUM - SERUM 4.4 mmol/L (3.5-5.1); PROTEIN - SERUM 8.2 g/dL (6.4-8.2)
--- NOTE | 2019-02-16 12:17 | NUR ---
PT TO CT
[2019-02-16 12:30] VITALS: BP 139/72
[2019-02-16 12:58] LABS: APPEARANCE CLEAR (CLEAR); COLOR YELLOW (YELLOW); SPECIFIC GRAVITY 1.015 (1.005-1.020)
[2019-02-16 12:59] LABS: BACTERIA FEW /hpf (NONE SEEN); BILIRUBIN NEGATIVE (NEGATIVE); EPITHELIAL CELLS 0-5 /hpf (0-5); GLUCOSE NEGATIVE (NEGATIVE); KETONE NEGATIVE (NEGATIVE); NITRITE NEGATIVE (NEGATIVE); PROTEIN TRACE mg/dL (NEGATIVE); UROBILINOGEN NORMAL (NORMAL); WHITE CELLS - URINE 0-5 /hpf (0-5)
[2019-02-16 13:00] LABS: MUCUS <1+ /lpf (NONE SEEN)
--- NOTE | 2019-02-16 13:49 | NUR ---
PT AWARE WE ARE WAITING ON A ROOM, IV ANTIBIOTICS ARE IN. PT ESTHER. WELL. SHE IS NPO PER ORDERS.
[2019-02-16 14:50] VITALS: BP 142/76
[2019-02-16 17:23] VITALS: BP 146/60; BMI 36.3
--- NOTE | 2019-02-16 17:34 | NUR ---
PT ARRIVED TO UNIT VIA WHEELCHAIR. PT HAS A WOUND TO RT SIDE OF LABIA. WOUND IS RED AND SWOLLEN WITH SCANT DRAINAGE. PT IS A&O. PT IS UP ADLIB. PT ORIENTED TO ROOM AND QUESTIONS ANSWERED.
--- NOTE | 2019-02-16 17:38 | MORECARE ---
CASE MANAGEMENT DISCHARGE SUMMARY PATIENT: LISA RENDON UNIT: [id number] ADM DATE: 02/16/19 AGE: 63 : 53 SEX: F ROOM/BED: D.1212 AUTHOR: CHERRY VILLAREAL PHYSICIAN: REFERRING PHYSICIAN: NAOMI SEGURA MD DATE OF SERVICE: 02/16/19 Discharge Plan Patient Name: LISA RENDON Facility: [facility]:[place] : 1955 Planned Disposition: Anticipated Discharge Date: 02/21/19 Discharge Date: Expected LOS: 5 Initial Reviewer: [email or web address] Initial Review Date: 02/16/2019 Generated: 02/16/19 6:38 pm DCPIA - Discharge Planning Initial Assessment Updated by [email or web address]: Heidy Penaloza on 02/16/19 5:36 pm * Is the patient Alert and Oriented? Yes * How many steps to enter\exit or inside your home? ramp * PCP Dr. Ralph * Pharmacy [facility] [address] and Mail order * Preadmission Environment Home with Family * ADLs Independent * Equipment Cane Glucometer Rolling Walker Shower Chair Wheelchair * Other Equipment Denied problems obtaining her glucometer supplies. * List name and contact numbers for known caregivers / representatives who currently or will assist patient after discharge: Shalini Mendez [facility] [phone] * Verbal permission to speak to the caregivers and representatives has been obtained from the patient. Yes * Community resources currently utilized Home Health * Please name any agencies selected above. [facility] signed in ER by patient to resume Home Health * Additional services required to return to the preadmission environment? No * Can the patient safely return to the preadmission environment? Yes * Has this patient been hospitalized within the prior 30 days at any hospital? Yes Patient Name: LISA RENDON Page 11374 at 1738 All edits/amendments must be made on the electronic document DICTATION DATE: 02/16/191736 VARNISH THINNER: ADE 02/16/191736 RPT#: [id number] DC DATE: STATUS: ADM IN [facility] [address] [place] [address] END OF REPORT
--- NOTE | 2019-02-16 17:44 | MORECARE ---
CASE MANAGEMENT DISCHARGE SUMMARY PATIENT: LISA RENDON UNIT: [id number] ADM DATE: 02/16/19 AGE: 63 : 53 SEX: F ROOM/BED: D.1212 AUTHOR: CHERRY VILLAREAL PHYSICIAN: REFERRING PHYSICIAN: MOHIT SEGURA MD DATE OF SERVICE: 02/16/19 Discharge Plan Patient Name: LISA RENDON Facility: [facility]:[place] : 1955 Planned Disposition: Anticipated Discharge Date: 02/21/19 Discharge Date: Expected LOS: 5 Initial Reviewer: [email or web address] Initial Review Date: 02/16/2019 Generated: 02/16/19 6:44 pm DCP- Discharge Planning Updated by [email or web address]: Heidy Penaloza on 02/16/19 4:[address] Patient Name: LISA RENDON Admission Status: ER Accout number: [id number] Admission Date: 02-16-2019 : 1955 Admission Diagnosis: Attending: Mohit Segura Current LOS: 1 Anticipated DC Date: 02-21-2019 Planned Disposition: Primary Insurance: MEDICARE A & B Discharge Planning Comments: CM met with patient to complete initial dc planning assessment. CM educated patient on the CM role and verbal consent given by patient to complete assessment. CM verified patient's address, phone number, and emergency contact phone numbers. Patient lives at home with and reports she is independent in her care. She and her are currently staying at her sisters house to care for her sister. Patient currently has [facility] and wishes to resume at discharge. MARIS form signed by patient for resumption of [facility]. Signed form placed in chart and signed form given to patient. At discharge patient plans to return to her sisters and feels this is a safe discharge. Patient denied further known discharge needs at this time. . Patient reports her or sister will transport her home at time of discharge.CM will continue to follow and will assist as needed with dc plans/needs. Senior Backup Administrator: Heidy Penaloza RN, [facility] DCPIA - Discharge Planning Initial Assessment Updated by [email or web address]: Heidy Penaloza on 02/16/19 5:36 pm * Is the patient Alert and Oriented? Yes * How many steps to enter\exit or inside your home? ramp * PCP Dr. Ralph * Pharmacy [facility] [address] and Mail order * Preadmission Environment Home with Family * ADLs Independent * Equipment Cane Glucometer Rolling Walker Shower Chair Wheelchair * Other Equipment Denied problems obtaining her glucometer supplies. * List name and contact numbers for known caregivers / representatives who currently or will assist patient after discharge: Shalini Mendez - [facility] - [phone] * Verbal permission to speak to the caregivers and representatives has been obtained from the patient. Yes * Community resources currently utilized Home Health * Please name any agencies selected above. [facility] signed in ER by patient to resume Home Health * Additional services required to return to the preadmission environment? No * Can the patient safely return to the preadmission environment? Yes * Has this patient been hospitalized within the prior 30 days at any hospital? Yes Last DP export: 02/16/19 4:38 pm Patient Name: LISA RENDON Page [id number] at 1744 All edits/amendments must be made on the electronic document DICTATION DATE: 02/16/191743 SPRAY GUN STRIPER: ADE 02/16/191743 RPT#: [id number] [place] DATE: STATUS: ADM IN [facility] [address] [place] [address] END OF REPORT
[2019-02-16 20:00] VITALS: BP 125/64
[2019-02-17] VITALS: BP 117/62
[2019-02-17 04:00] VITALS: BP 108/43
[2019-02-17 07:00] LABS: BASOPHILS 0.4 % (0-2); EOSINOPHILS 7.2 % (0-7); HEMATOCRIT 32.1 % (36.0-48.0); HEMOGLOBIN 10.6 g/dL (12-16); IMMATURE GRANULOCYTES 0.4 % (0-5); LYMPHOCYTES 26.1 % (15-50); MCH 30.4 pg (26.0-34.0); MEAN PLATELET VOLUME 9.8 fL (7.4-10.4); MONOCYTES 10.7 % (2-11); NEUTROPHILS 55.2 % (40-80); RBC 3.49 10x6/uL (4.00-5.40); RDW 14.8 % (11.5-14.5); WBC 9.4 10x3/uL (4.8-10.8)
[2019-02-17 07:02] LABS: PLATELET COUNT 281 10x3/uL (130-400)
[2019-02-17 07:40] LABS: ANION GAP 16.3 mmol/L (8-16); CALCIUM 9.3 mg/dL (8.5-10.1); CARBON DIOXIDE 21.2 mmol/L (21.0-32.0); CREATININE - SERUM 0.9 mg/dL (0.6-1.3); MAGNESIUM - SERUM 1.5 mg/dL (1.8-2.4); POTASSIUM - SERUM 4.5 mmol/L (3.5-5.1)
[2019-02-17 08:05] VITALS: BP 138/66
[2019-02-17 09:34] LABS: % SATURATION 16 % (15-55); IRON 42 ug/dl (35-150); TOTAL IRON BIND CAPACITY 249 ug/dl (260-445); UNSAT IRON BIND CAPACITY 207 ug/dl (150-375)
[2019-02-17 11:39] VITALS: Ht 157.5 cm; Wt 89.8 kg
[2019-02-17 12:04] VITALS: BP 139/62
[2019-02-17 17:17] VITALS: BP 117/87
[2019-02-17 18:44] VITALS: BP 149/63
--- NOTE | 2019-02-17 23:20 | NUR ---
SHIFT ASSESSMENT COMPLETE. NO VISUAL CUES OF DISTRESS NOTED. VS SIGNS STABLE. WILL CONTINUE TO MONITOR.
[2019-02-18 01:24] VITALS: BP 123/75
[2019-02-18 04:00] VITALS: BP 128/57
[2019-02-18 06:32] LABS: BASOPHILS 0.6 % (0-2); HEMOGLOBIN 10.4 g/dL (12-16); IMMATURE GRANULOCYTES 0.1 % (0-5); LYMPHOCYTES 28.5 % (15-50); MCH 30.4 pg (26.0-34.0); MCHC 33.5 g/dL (31.0-37.0); MCV 90.6 fL (80.0-100.0); MEAN PLATELET VOLUME 9.7 fL (7.4-10.4); MONOCYTES 9.3 % (2-11); NEUTROPHILS 55.5 % (40-80); PLATELET COUNT 314 10x3/uL (130-400); RBC 3.42 10x6/uL (4.00-5.40); RDW 14.6 % (11.5-14.5); WBC 8.2 10x3/uL (4.8-10.8)
[2019-02-18 07:02] LABS: ALBUMIN 2.8 g/dL (3.4-5.0); ANION GAP 15.2 mmol/L (8-16); BILIRUBIN - TOTAL 0.25 mg/dL (0.2-1.3); CALCIUM 9.2 mg/dL (8.5-10.1); CARBON DIOXIDE 22.6 mmol/L (21.0-32.0); CREATININE - SERUM 0.9 mg/dL (0.6-1.3); MAGNESIUM - SERUM 1.5 mg/dL (1.8-2.4); PROTEIN - SERUM 7.3 g/dL (6.4-8.2)
[2019-02-18 07:03] LABS: POTASSIUM - SERUM 3.8 mmol/L (3.5-5.1)
[2019-02-18 08:20] VITALS: BP 146/67
--- NOTE | 2019-02-18 14:00 | NUR ---
ALERT AND ORIENTED X4. SHOWER AND LINEN CHANGE COMPLETE. TRIPLE ANTIBIOTIC APPLIED TO GROIN INCISION ORDERED. SCANT DRAINAGE. DENIES PAIN OR SOB. CONTINUE PLAN OF CARE AND SAFETY PRECAUTIONS.
[2019-02-18 15:48] VITALS: BP 112/73
--- NOTE | 2019-02-18 18:09 | NUR ---
ALERT AND ORIENTED X4. SITTING UP IN BED WATCHING TV. DENIES PAIN OR SOB. DENIES ANY NEEDS AT THIS TIME. CONTINUE PLAN OF CARE AND SAFETY PRECAUTIONS.
--- NOTE | 2019-02-18 19:33 | NUR ---
PATIENT RESTING IN BED WITH NO S/S OF DISTRESS AND DENIES NEEDS AT THIS TIME. BED IN LOWEST POSITION AND CALL LIGHT WITHIN REACH. ENCOURAGED THE PATIENT TO CALL IF SHE HAS NEEDS. WILL CONTINUE TO MONITOR.
[2019-02-19 06:18] LABS: BASOPHILS 0.5 % (0-2); EOSINOPHILS 7.3 % (0-7); HEMOGLOBIN 10.4 g/dL (12-16); IMMATURE GRANULOCYTES 0.3 % (0-5); LYMPHOCYTES 28.8 % (15-50); MCH 30.3 pg (26.0-34.0); MCHC 33.5 g/dL (31.0-37.0); MCV 90.4 fL (80.0-100.0); MONOCYTES 10.3 % (2-11); NEUTROPHILS 52.8 % (40-80); PLATELET COUNT 340 10x3/uL (130-400); RBC 3.43 10x6/uL (4.00-5.40); RDW 14.3 % (11.5-14.5); WBC 7.8 10x3/uL (4.8-10.8)
[2019-02-19 06:40] LABS: CALC OSMOLALITY 280 mosm/kg (275-300); CALCIUM 9.2 mg/dL (8.5-10.1); CARBON DIOXIDE 24.1 mmol/L (21.0-32.0); CHLORIDE - SERUM 103 mmol/L (98-107); CREATININE - SERUM 0.8 mg/dL (0.6-1.3); GLUCOSE 188 mg/dL (74-106); MAGNESIUM - SERUM 1.7 mg/dL (1.8-2.4); POTASSIUM - SERUM 3.7 mmol/L (3.5-5.1); SODIUM 137 mmol/L (136-145); UREA NITROGEN 17 mg/dL (7-18); eGFR NON AFRICAN AMERICAN 76 mL/min (90-120)
[2019-02-19 07:50] VITALS: BP 157/70
--- NOTE | 2019-02-19 13:21 | NUR ---
Nutrition follow-up: Diet: ADA consistent CHO PO Intake 100% of last 3 meals Labs reviewed Wt: 197# no BM charted since admit RDN following.
--- NOTE | 2019-02-19 15:35 | NUR ---
NORCO 10 MG PO GIVEN FOR RIGHT GROIN, HIP AND LEG PAIN AT LEVEL #7.
[2019-02-19 16:30] VITALS: BP 157/59
--- NOTE | 2019-02-19 17:10 | NUR ---
ALERT AND ORIENTED X4. SITTING UP IN BED WATCHING TV. DENIES PAIN OR SOB. DENIES ANY NEEDS AT THIS TIME. NO CHANGE. CONTINUE PLAN OF CARE AND SAFETY PRECAUTIONS.
--- NOTE | 2019-02-19 19:45 | NUR ---
RESPONDED TO PATIENT'S CL. BROUGHT PATIENT A SNACK PER HER REQUEST. PATIENT DENIES OTHER NEEDS AT THIS TIME. BED IN LOWEST POSITION AND CALL LIGHT WITHIN REACH. ENCOURAGED THE PATIENT TO CALL IF SHE HAS NEEDS. WILL CONTINUE TO MONITOR.
[2019-02-19 20:00] VITALS: BP 136/66
[2019-02-20 04:00] VITALS: BP 135/60
[2019-02-20 07:10] LABS: BASOPHILS 0.5 % (0-2); EOSINOPHILS 5.6 % (0-7); HEMATOCRIT 31.8 % (36.0-48.0); HEMOGLOBIN 10.7 g/dL (12-16); IMMATURE GRANULOCYTES 0.3 % (0-5); LYMPHOCYTES 25.1 % (15-50); MCH 30.4 pg (26.0-34.0); MCHC 33.6 g/dL (31.0-37.0); MCV 90.3 fL (80.0-100.0); MEAN PLATELET VOLUME 9.6 fL (7.4-10.4); MONOCYTES 10.2 % (2-11); NEUTROPHILS 58.3 % (40-80); PLATELET COUNT 316 10x3/uL (130-400); RBC 3.52 10x6/uL (4.00-5.40); RDW 14.3 % (11.5-14.5); WBC 7.3 10x3/uL (4.8-10.8)
[2019-02-20 07:21] LABS: ANION GAP 13.7 mmol/L (8-16); CALCIUM 9.3 mg/dL (8.5-10.1); CREATININE - SERUM 0.9 mg/dL (0.6-1.3); MAGNESIUM - SERUM 1.4 mg/dL (1.8-2.4); POTASSIUM - SERUM 3.7 mmol/L (3.5-5.1)
[2019-02-20 08:30] VITALS: BP 148/77
--- NOTE | 2019-02-20 12:58 | MORECARE ---
CASE MANAGEMENT DISCHARGE SUMMARY PATIENT: LISA RENDON UNIT: [id number] ADM DATE: 02/16/19 AGE: 63 : 54 SEX: F ROOM/BED: D.1212 AUTHOR: CHERRY VILLAREAL PHYSICIAN: REFERRING PHYSICIAN: MOHIT SEGURA MD DATE OF SERVICE: 02/20/19 Discharge Plan Patient Name: LISA RENDON Facility: [facility]:[place] : 1955 Planned Disposition: Home with Home Health Anticipated Discharge Date: 02/21/19 Discharge Date: Expected LOS: 5 Initial Reviewer: [email or web address] Initial Review Date: 02/16/2019 Generated: 02/20/19 1:58 pm DCP- Discharge Planning Updated by [id number]: Heidy Penaloza on 02/16/19 4:[address] Patient Name: LISA RENDON Admission Status: ER Accout number: [id number] Admission Date: 02-16-2019 : 1955 Admission Diagnosis: Attending: Mohit Segura Current LOS: 1 Anticipated DC Date: 02-21-2019 Planned Disposition: Primary Insurance: MEDICARE A & B Discharge Planning Comments: CM met with patient to complete initial dc planning assessment. CM educated patient on the CM role and verbal consent given by patient to complete assessment. CM verified patient's address, phone number, and emergency contact phone numbers. Patient lives at home with and reports she is independent in her care. She and her are currently staying at her sisters house to care for her sister. Patient currently has [facility] and wishes to resume at discharge. [facility]IS form signed by patient for resumption of [facility]. Signed form placed in chart and signed form given to patient. At discharge patient plans to return to her sisters and feels this is a safe discharge. Patient denied further known discharge needs at this time. . Patient reports her or sister will transport her home at time of discharge.CM will continue to follow and will assist as needed with dc plans/needs. Receivable Executive: Heidy Penaloza RN, [facility] DCPIA - Discharge Planning Initial Assessment Updated by [id number]: Heidy Penaloza on 02/16/19 5:36 pm * Is the patient Alert and Oriented? Yes * How many steps to enter\exit or inside your home? ramp * PCP Dr. Ralph * Pharmacy [facility] [address] and Mail order * Preadmission Environment Home with Family * ADLs Independent * Equipment Cane Glucometer Rolling Walker Shower Chair Wheelchair * Other Equipment Denied problems obtaining her glucometer supplies. * List name and contact numbers for known caregivers / representatives who currently or will assist patient after discharge: Shalini Mendez - - [phone] * Verbal permission to speak to the caregivers and representatives has been obtained from the patient. Yes * Community resources currently utilized Home Health * Please name any agencies selected above. [facility] signed in ER by patient to resume Home Health * Additional services required to return to the preadmission environment? No * Can the patient safely return to the preadmission environment? Yes * Has this patient been hospitalized within the prior 30 days at any hospital? Yes Last DP export: 02/16/19 4:44 pm Patient Name: LISA RENDON Page 51683 at 1258 All edits/amendments must be made on the electronic document DICTATION DATE: 02/20/19 1258 SAND POLISHER: ADE 02/20/19 1258 RPT#: [id number] DC DATE: STATUS: ADM IN [facility] [address] [place] [address] END OF REPORT
--- NOTE | 2019-02-20 13:13 | MORECARE ---
CASE MANAGEMENT DISCHARGE SUMMARY PATIENT: LISA RENDON UNIT: [id number] ADM DATE: 02/16/19 AGE: 63 : 53 SEX: F ROOM/BED: D.1212 AUTHOR: CHERRY VILLAREAL PHYSICIAN: REFERRING PHYSICIAN: MOHIT SEGURA MD DATE OF SERVICE: 02/20/19 Discharge Plan Patient Name: LISA RENDON Facility: [facility]:[place] : 1955 Planned Disposition: Home with Home Health Anticipated Discharge Date: 02/21/19 Discharge Date: Expected LOS: 5 Initial Reviewer: [email or web address] Initial Review Date: 02/16/2019 Generated: 02/20/19 2:13 pm Comments DCP- Discharge Planning Updated by [id number]: Laura Espinoza on 02/20/19 12:[address] TC TO [facility]. SPOKE W/ CATALINA. VERIFIED PATIENT IS ON SERVICE. ADVISED THE PATIENT MAYBE DISCHARGED WITH IN THE NEXT 24 HRS. PRIMARY NURSE ADVISES THE DR IS CONSIDERING A PICC LINE AND HOME IVAB THERAPY. CM VISITED WITH THE PATIENT REGARDING ANY ADDITIONAL NEEDS OR CONCERNS. PATIENT WAS CONCERNED SHE HAD NOT RECEIVED A VISIT FROM HER PCP OR A MD FROM HIS GROUP. CM ADVISED THE CHANGE TO DR RALPH WAS RECENTLY NOTED. SHE ALSO ADVISED CM THAT SHE LIVED IN HER SISTER'S DOUBLE WIDE TRAILER. THE SISTER IS GOING THRU A SEPARATION. THE HAS APPARENTLY INDICATED THAT THERE MAYBE A PROBLEM WITH BLACK MOLD IN THE HOUSE. THE PATIENT WAS NOT SURE WHAT THEY MAY NEED TO DO. CM GOGGLED SOME INFORMATION FOR [place]. SEVERAL SOURCES STATED TO CONTACT THE HEALTH DEPARTMENT IN YOUR STATE. CM PROVIDED THE PATIENT WITH INFORMATION ON [place] AND [place] RESOURCES. DCP- Discharge Planning Updated by [id number]: Heidy Penaloza on 02/16/19 4:[address] Patient Name: LISA RENDON Admission Status: ER Accout number: [id number] Admission Date: 02-16-2019 : 1955 Admission Diagnosis: Attending: Mohit Segura Current LOS: 1 Anticipated DC Date: 02-21-2019 Planned Disposition: Primary Insurance: MEDICARE A & B Discharge Planning Comments: CM met with patient to complete initial dc planning assessment. CM educated patient on the CM role and verbal consent given by patient to complete assessment. CM verified patient's address, phone number, and emergency contact phone numbers. Patient lives at home with and reports she is independent in her care. She and her are currently staying at her sisters house to care for her sister. Patient currently has [facility] and wishes to resume at discharge. MARIS form signed by patient for resumption of [facility]. Signed form placed in chart and signed form given to patient. At discharge patient plans to return to her sisters and feels this is a safe discharge. Patient denied further known discharge needs at this time. . Patient reports her or sister will transport her home at time of discharge.CM will continue to follow and will assist as needed with dc plans/needs. Outreach Clinician: Heidy Penaloza RN, [facility] DCPIA - Discharge Planning Initial Assessment Updated by [email or web address]: Heidy Penaloza on 02/16/19 5:36 pm * Is the patient Alert and Oriented? Yes * How many steps to enter\exit or inside your home? ramp * PCP Dr. Ralph * Pharmacy [facility] [address] and Mail order * Preadmission Environment Home with Family * ADLs Independent * Equipment Cane Glucometer Rolling Walker Shower Chair Wheelchair * Other Equipment Denied problems obtaining her glucometer supplies. * List name and contact numbers for known caregivers / representatives who currently or will assist patient after discharge: Shalini Mendez - - [phone] * Verbal permission to speak to the caregivers and representatives has been obtained from the patient. Yes * Community resources currently utilized Home Health * Please name any agencies selected above. [facility] - MARIS signed in ER by patient to resume Home Health * Additional services required to return to the preadmission environment? No * Can the patient safely return to the preadmission environment? Yes * Has this patient been hospitalized within the prior 30 days at any hospital? Yes Last DP export: 02/20/19 11:58 am Patient Name: LISA RENDON Page [phone] at 1313 All edits/amendments must be made on the electronic document DICTATION DATE: 02/20/19 1313 NURSERY SCHOOL ATTENDANT: ADE 02/20/19 1313 RPT#: [id number] DC DATE: STATUS: ADM IN [facility] [address] [place] [address] END OF REPORT
[2019-02-20 16:44] VITALS: BP 138/69
--- NOTE | 2019-02-20 20:00 | NUR ---
LYING IN BED. ALERT AND ORIENTED X4. DENIES PAIN. RESP EVEN AND NONLABORED. FACE FLUSHED, HAS ROSACEA. SCRATCH ROLDAN NOTED TO BLE. STATES HER DOGS LEFT THE SCRATCHES ON HER. NO RASHES NOTED. HEALING WOUND NOTED TO RT PELVIC/LABIA AREA IS OPEN TO AIR. NO IV ACCESS. NO DISTRESS. SR ELEVATED X2. CL IN REACH.
[2019-02-20 20:25] VITALS: BP 147/67
[2019-02-21 00:05] VITALS: BP 144/53
--- NOTE | 2019-02-21 01:58 | NUR ---
HAS RESTED WELL SO FAR THIS SHIFT. LYING IN BED WITH EYES CLOSED. RESP EVEN AND NONLABORED. CL IN REACH.
[2019-02-21 04:30] VITALS: BP 133/64
[2019-02-21 07:20] LABS: BASOPHILS 0.4 % (0-2); EOSINOPHILS 6.5 % (0-7); HEMATOCRIT 32.2 % (36.0-48.0); HEMOGLOBIN 10.9 g/dL (12-16); IMMATURE GRANULOCYTES 0.3 % (0-5); LYMPHOCYTES 21.3 % (15-50); MCH 30.6 pg (26.0-34.0); MCHC 33.9 g/dL (31.0-37.0); MCV 90.4 fL (80.0-100.0); MEAN PLATELET VOLUME 9.9 fL (7.4-10.4); MONOCYTES 8.8 % (2-11); NEUTROPHILS 62.7 % (40-80); PLATELET COUNT 334 10x3/uL (130-400); RBC 3.56 10x6/uL (4.00-5.40); RDW 14.4 % (11.5-14.5)
[2019-02-21 07:23] LABS: WBC 9.2 10x3/uL (4.8-10.8)
[2019-02-21 07:38] LABS: ANION GAP 14.1 mmol/L (8-16); CALCIUM 9.5 mg/dL (8.5-10.1); CARBON DIOXIDE 24.6 mmol/L (21.0-32.0); CREATININE - SERUM 0.9 mg/dL (0.6-1.3); MAGNESIUM - SERUM 1.5 mg/dL (1.8-2.4); POTASSIUM - SERUM 3.7 mmol/L (3.5-5.1)
[2019-02-21 08:00] VITALS: BP 149/70
--- NOTE | 2019-02-21 08:30 | NUR ---
CALLED DR. BUNN AND NOTIFIED HIM THAT DR. MANUEL STATED THAT PT COULD BE DISCHARGE HOME. DR. BUNN STATED OK, HAVE HER CONTINUE TAKING ANTIBIOTIC THAT DR. SCHOFIELD CALLED IN TO PHARMACY AND HAVE HER F/U WITH HIM IN ONE WEEK.
--- NOTE | 2019-02-21 10:35 | NUR ---
CALLED DR. BUNN AND INFORMED HIM THAT DISCHARGE MEDS WERE NOT DONE ON PT. INFORMED BY DR. BUNN THAT OMNICEF WAS ESCRIBED TO [facility] ON [address], AND ABOUT HOME MEDICATIONS TO HAVE DR. MANUEL ADDRESS THEM. CALLED DR. MANUEL OFFICE AND SPOKE WITH [place]ADISON, INFORMED HER ABOUT HOME MEDICATIONS NEEDING TO BE ADDRESSED, MADISON SPOKE WITH DR. MANUEL WHO STATED THAT DR. BUNN NEEDED TO ADDRESS HOME MEDICATIONS SINCE HE WAS THE ADMITTING DOCTOR.
[2019-02-21] MEDS ORDERED: OMNICEF300 MG PO (10:48)
--- NOTE | 2019-02-21 11:03 | NUR ---
PROVIDED VERBAL AND WRITTEN DISCHARGE TEACHING TO PT, AND , WHO VERBALIAZED UNDERSTANDING REGARDING TEACHING. PT READY FOR WHEELCHAIR.
--- NOTE | 2019-02-21 11:06 | NUR ---
PT LEFT UNIT VIA WHEELCHAIR, WITH ALL BELONGINGS, ACCOMPANIED BY , NAD NOTED.
--- NOTE | 2019-02-21 12:14 | MORECARE ---
CASE MANAGEMENT DISCHARGE SUMMARY PATIENT: LISA RENDON UNIT: [id number] ADM DATE: 02/16/19 AGE: 63 : 53 SEX: F ROOM/BED: D.1212 AUTHOR: CHERRY VILLAREAL PHYSICIAN: REFERRING PHYSICIAN: MOHIT SEGURA MD DATE OF SERVICE: 02/21/19 Discharge Plan Patient Name: LISA RENDON Facility: [facility]:[place] : 1955 Planned Disposition: Home with Home Health Anticipated Discharge Date: 02/21/19 Discharge Date: 02/21/2019 Expected LOS: 5 Initial Reviewer: [email or web address] Initial Review Date: 02/16/2019 Generated: 02/21/19 1:14 pm Comments DCP- Discharge Planning Updated by [id number]: Laura Espinoza on 02/20/19 12:[address] TC TO [facility]. SPOKE W/ CATALINA. VERIFIED PATIENT IS ON SERVICE. ADVISED THE PATIENT MAYBE DISCHARGED WITH IN THE NEXT 24 HRS. PRIMARY NURSE ADVISES THE DR IS CONSIDERING A PICC LINE AND HOME IVAB THERAPY. CM VISITED WITH THE PATIENT REGARDING ANY ADDITIONAL NEEDS OR CONCERNS. PATIENT WAS CONCERNED SHE HAD NOT RECEIVED A VISIT FROM HER PCP OR A MD FROM HIS GROUP. CM ADVISED THE CHANGE TO DR RALPH WAS RECENTLY NOTED. SHE ALSO ADVISED CM THAT SHE LIVED IN HER SISTER'S DOUBLE WIDE TRAILER. THE SISTER IS GOING THRU A SEPARATION. THE HAS APPARENTLY INDICATED THAT THERE MAYBE A PROBLEM WITH BLACK MOLD IN THE HOUSE. THE PATIENT WAS NOT SURE WHAT THEY MAY NEED TO DO. CM GOGGLED SOME INFORMATION [facility]. SEVERAL SOURCES STATED TO CONTACT THE HEALTH DEPARTMENT IN YOUR STATE. CM PROVIDED THE PATIENT WITH INFORMATION ON [place] AND [place] [employer]. DCP- Discharge Planning Updated by [id number]: Heidy Penaloza on 02/16/19 4:[address] Patient Name: LISA RENDON Admission Status: ER Accout number: [id number] Admission Date: 02-16-2019 : 1955 Admission Diagnosis: Attending: Mohit Segura Current LOS: 1 Anticipated DC Date: 02-21-2019 Planned Disposition: Primary Insurance: MEDICARE A & B Discharge Planning Comments: CM met with patient to complete initial dc planning assessment. CM educated patient on the CM role and verbal consent given by patient to complete assessment. CM verified patient's address, phone number, and emergency contact phone numbers. Patient lives at home with and reports she is independent in her care. She and her are currently staying at her sisters house to care for her sister. Patient currently has [facility] and wishes to resume at discharge. MARIS form signed by patient for resumption of [facility]. Signed form placed in chart and signed form given to patient. At discharge patient plans to return to her sisters and feels this is a safe discharge. Patient denied further known discharge needs at this time. . Patient reports her or sister will transport her home at time of discharge.CM will continue to follow and will assist as needed with dc plans/needs. Rn Bone Marrow Transplant: Heidy Penaloza RN, [facility] DCPIA - Discharge Planning Initial Assessment Updated by [id number]: Heidy Penaloza on 02/16/19 5:36 pm * Is the patient Alert and Oriented? Yes * How many steps to enter\exit or inside your home? ramp * PCP Dr. Ralph * Pharmacy [facility] on [address] and Mail order * Preadmission Environment Home with Family * ADLs Independent * Equipment Cane Glucometer Rolling Walker Shower Chair Wheelchair * Other Equipment Denied problems obtaining her glucometer supplies. * List name and contact numbers for known caregivers / representatives who currently or will assist patient after discharge: Shalini ziegler - [phone] * Verbal permission to speak to the caregivers and representatives has been obtained from the patient. Yes * Community resources currently utilized Home Health * Please name any agencies selected above. [facility] - MARIS signed in ER by patient to resume Home Health * Additional services required to return to the preadmission environment? No * Can the patient safely return to the preadmission environment? Yes * Has this patient been hospitalized within the prior 30 days at any hospital? Yes Coverage Notice Reviewer: [id number] - Heidy Penaloza Notice Issued Date-Time: 02/21/2019 9:35 Notice Type: IM Discharge Notice Notice Delivered To: Patient Relationship to Patient: Science Liaison Name: Delivery Method: HAND - Hand Delivered Ethel Days: Prior Verbal Notification: Recipient Understood Notice: Recipient Signature: Med Rec Note Co-signed by Attending: Coverage Notice Comment: Last DP export: 02/20/19 12:13 pm Patient Name: LISA RENDON Page [id number] at 1214 All edits/amendments must be made on the electronic document DICTATION DATE: 02/21/191212 SORTING AND FOLDING SUPERVISOR: ADE 02/21/191212 RPT#: [id number] DC DATE:02/21/19 STATUS: DIS IN [facility] [address] [place] [address] END OF REPORT
--- NOTE | 2019-02-21 12:22 | MORECARE ---
CASE MANAGEMENT DISCHARGE SUMMARY PATIENT: LISA RENDON UNIT: [id number] ADM DATE: 02/16/19 AGE: 63 : 53 SEX: F ROOM/BED: D.1212 AUTHOR: CHERRY VILLAREAL PHYSICIAN: REFERRING PHYSICIAN: MOHIT SEGURA MD DATE OF SERVICE: 02/21/19 Discharge Plan Patient Name: LISA RENDON Facility: [facility]:[place] : 1955 Planned Disposition: Home with Home Health Anticipated Discharge Date: 02/21/19 Discharge Date: 02/21/2019 Expected LOS: 5 Initial Reviewer: [email or web address] Initial Review Date: 02/16/2019 Generated: 02/21/19 1:22 pm Comments DCP- Discharge Planning Updated by [email or web address]: Laura Espinoza on 02/20/19 12:[address] TC TO [facility]. SPOKE W/ CATALINA. VERIFIED PATIENT IS ON SERVICE. ADVISED THE PATIENT MAYBE DISCHARGED WITH IN THE NEXT 24 HRS. PRIMARY NURSE ADVISES THE DR IS CONSIDERING A PICC LINE AND HOME IVAB THERAPY. CM VISITED WITH THE PATIENT REGARDING ANY ADDITIONAL NEEDS OR CONCERNS. PATIENT WAS CONCERNED SHE HAD NOT RECEIVED A VISIT FROM HER PCP OR A MD FROM HIS GROUP. CM ADVISED THE CHANGE TO DR RALPH WAS RECENTLY NOTED. SHE ALSO ADVISED CM THAT SHE LIVED IN HER SISTER'S DOUBLE WIDE TRAILER. THE SISTER IS GOING THRU A SEPARATION. THE HAS APPARENTLY INDICATED THAT THERE MAYBE A PROBLEM WITH BLACK MOLD IN THE HOUSE. THE PATIENT WAS NOT SURE WHAT THEY MAY NEED TO DO. CM GOGGLED SOME INFORMATION FOR [facility]. SEVERAL SOURCES STATED TO CONTACT THE HEALTH DEPARTMENT IN YOUR STATE. CM PROVIDED THE PATIENT WITH INFORMATION ON [place] AND [place] [employer]. DCP- Discharge Planning Updated by [id number]: Heidy Penaloza on 02/16/19 4:[address] Patient Name: LISA RENDON Admission Status: ER Accout number: [id number] Admission Date: 02-16-2019 : 1955 Admission Diagnosis: Attending: Mohit Segura Current LOS: 1 Anticipated DC Date: 02-21-2019 Planned Disposition: Primary Insurance: MEDICARE A & B Discharge Planning Comments: CM met with patient to complete initial dc planning assessment. CM educated patient on the CM role and verbal consent given by patient to complete assessment. CM verified patient's address, phone number, and emergency contact phone numbers. Patient lives at home with and reports she is independent in her care. She and her are currently staying at her sisters house to care for her sister. Patient currently has [facility] and wishes to resume at discharge. MARIS form signed by patient for resumption of [facility]. Signed form placed in chart and signed form given to patient. At discharge patient plans to return to her sisters and feels this is a safe discharge. Patient denied further known discharge needs at this time. . Patient reports her or sister will transport her home at time of discharge.CM will continue to follow and will assist as needed with dc plans/needs. Reports Developer: Heidy Penaloza RN, [facility] DCPIA - Discharge Planning Initial Assessment Updated by [id number]: Heidy Penaloza on 02/16/19 5:36 pm * Is the patient Alert and Oriented? Yes * How many steps to enter\exit or inside your home? ramp * PCP Dr. Ralph * Pharmacy [facility] on [address] and Mail order * Preadmission Environment Home with Family * ADLs Independent * Equipment Cane Glucometer Rolling Walker Shower Chair Wheelchair * Other Equipment Denied problems obtaining her glucometer supplies. * List name and contact numbers for known caregivers / representatives who currently or will assist patient after discharge: Shalini ziegler - [phone] * Verbal permission to speak to the caregivers and representatives has been obtained from the patient. Yes * Community resources currently utilized Home Health * Please name any agencies selected above. [facility] - MARIS signed in ER by patient to resume Home Health * Additional services required to return to the preadmission environment? No * Can the patient safely return to the preadmission environment? Yes * Has this patient been hospitalized within the prior 30 days at any hospital? Yes External Providers [facility] Contact Date: Service Request Date: Service Type: Resolution: Reviewer: Comments: Coverage Notice Reviewer: [id number] Madelin Penaloza Notice Issued Date-Time: 02/21/2019 9:35 Notice Type: IM Discharge Notice Notice Delivered To: Patient Relationship to Patient: Non Ferrous Material Handler Name: Delivery Method: HAND - Hand Delivered Ethel Days: Prior Verbal Notification: Recipient Understood Notice: Recipient Signature: Med Rec Note Co-signed by Attending: Coverage Notice Comment: Last DP export: 02/21/19 11:14 a Patient Name: LISA RENDON Page [phone] at 1222 All edits/amendments must be made on the electronic document DICTATION DATE: 02/21/19 1221 VIDEO JOURNALIST: ADE 02/21/19 1221 RPT#: [id number] DC DATE:02/21/19 STATUS: DIS IN [facility] [address] [place] [address] END OF REPORT
--- NOTE | 2019-02-22 08:50 | MORECARE ---
CASE MANAGEMENT DISCHARGE SUMMARY PATIENT: LISA RENDON UNIT: [id number] ADM DATE: 02/16/19 AGE: 63 : 53 SEX: F ROOM/BED: D.1212 AUTHOR: CHERRY VILLAREAL PHYSICIAN: REFERRING PHYSICIAN: MOHIT SEGURA MD DATE OF SERVICE: 02/22/19 Discharge Plan Patient Name: LISA RENDON Facility: [facility]:[place] : 1955 Planned Disposition: Home with Home Health Anticipated Discharge Date: 02/21/19 Discharge Date: 02/21/2019 Expected LOS: 5 Initial Reviewer: [email or web address] Initial Review Date: 02/16/2019 Generated: 02/22/19 9:50 am Comments DCP- Discharge Planning Updated by [id number]: Laura Espinoza on 02/20/19 12:[address] TC TO [facility]. SPOKE W/ CATALINA. VERIFIED PATIENT IS ON SERVICE. ADVISED THE PATIENT MAYBE DISCHARGED WITH IN THE NEXT 24 HRS. PRIMARY NURSE ADVISES THE DR IS CONSIDERING A PICC LINE AND HOME IVAB THERAPY. CM VISITED WITH THE PATIENT REGARDING ANY ADDITIONAL NEEDS OR CONCERNS. PATIENT WAS CONCERNED SHE HAD NOT RECEIVED A VISIT FROM HER PCP OR A MD FROM HIS GROUP. CM ADVISED THE CHANGE TO DR RALPH WAS RECENTLY NOTED. SHE ALSO ADVISED CM THAT SHE LIVED IN HER SISTER'S DOUBLE WIDE TRAILER. THE SISTER IS GOING THRU A SEPARATION. THE HAS APPARENTLY INDICATED THAT THERE MAYBE A PROBLEM WITH BLACK MOLD IN THE HOUSE. THE PATIENT WAS NOT SURE WHAT THEY MAY NEED TO DO. CM [facility]ED [facility] INFORMATION [facility]. SEVERAL SOURCES STATED TO CONTACT THE HEALTH DEPARTMENT IN YOUR STATE. CM PROVIDED THE PATIENT WITH INFORMATION ON [place] AND [place] [employer]. DCP- Discharge Planning Updated by [id number]: Heidy Penaloza on 02/16/19 4:[address] Patient Name: LISA RENDON Admission Status: ER Accout number: [id number] Admission Date: 02-16-2019 : 1955 Admission Diagnosis: Attending: Mohit Segura Current LOS: 1 Anticipated DC Date: 02-21-2019 Planned Disposition: Primary Insurance: MEDICARE A & B Discharge Planning Comments: CM met with patient to complete initial dc planning assessment. CM educated patient on the CM role and verbal consent given by patient to complete assessment. CM verified patient's address, phone number, and emergency contact phone numbers. Patient lives at home with and reports she is independent in her care. She and her are currently staying at her sisters house to care for her sister. Patient currently has [facility] and wishes to resume at discharge. MARIS form signed by patient for resumption of [facility]. Signed form placed in chart and signed form given to patient. At discharge patient plans to return to her sisters and feels this is a safe discharge. Patient denied further known discharge needs at this time. . Patient reports her or sister will transport her home at time of discharge.CM will continue to follow and will assist as needed with dc plans/needs. Contract Processor: Heidy Penaloza RN, [facility] DCPIA - Discharge Planning Initial Assessment Updated by [email or web address]: Heidy Penaloza on 02/16/19 5:36 pm * Is the patient Alert and Oriented? Yes * How many steps to enter\exit or inside your home? ramp * PCP Dr. Ralph * Pharmacy [facility] [address] and Mail order * Preadmission Environment Home with Family * ADLs Independent * Equipment Cane Glucometer Rolling Walker Shower Chair Wheelchair * Other Equipment Denied problems obtaining her glucometer supplies. * List name and contact numbers for known caregivers / representatives who currently or will assist patient after discharge: Shalini ziegler - [phone] * Verbal permission to speak to the caregivers and representatives has been obtained from the patient. Yes * Community resources currently utilized Home Health * Please name any agencies selected above. [facility] - MARIS signed in ER by patient to resume Home Health * Additional services required to return to the preadmission environment? No * Can the patient safely return to the preadmission environment? Yes * Has this patient been hospitalized within the prior 30 days at any hospital? Yes Coverage Notice Reviewer: [id number] - Heidy Penaloza Notice Issued Date-Time: 02/21/2019 9:35 Notice Type: IM Discharge Notice Notice Delivered To: Patient Relationship to Patient: Flat Grinder Operator Name: Delivery Method: HAND - Hand Delivered Ethel Days: Prior Verbal Notification: Recipient Understood Notice: Recipient Signature: Med Rec Note Co-signed by Attending: Coverage Notice Comment: Last DP export: 02/21/19 11:22 a Patient Name: LISA RENDON Page [id number] at 0850 All edits/amendments must be made on the electronic document DICTATION DATE: 02/22/19 0850 JAILER/TRAINING OFFICER: ADE 02/22/19 0850 RPT#: [id number] DC DATE:02/21/19 STATUS: DIS IN [facility] [address] [place] [address] END OF REPORT
== END 2019-02-21 11:21 | disposition home health service (06) | DRG 758 ==
LOC: D.ER 10:46 → D.M3 16:37
PROVIDERS: Emergency Medicine; Family Medicine; Internal Medicine Nephrology; ADMIT Obstetrics & Gynecology; ATTEND Obstetrics & Gynecology
DX: N76.2 Acute vulvitis (principal); N17.9 Acute kidney failure, unspecified; D64.9 Anemia, unspecified; I10 Essential (primary) hypertension; E83.42 Hypomagnesemia; E11.9 Type 2 diabetes mellitus without complications; B96.5 Pseudomonas (aeruginosa) (mallei) (pseudomallei) as the cause of diseases classified elsewhere; K21.9 Gastro-esophageal reflux disease without esophagitis; K52.9 Noninfective gastroenteritis and colitis, unspecified; G44.209 Tension-type headache, unspecified, not intractable

== ENCOUNTER 2019-06-10 19:29 | Emergency (ER) | payer MEDICARE ==
[~2019-06-10] VITALS: Ht 157.5 cm; Wt 91.8 kg
[~2019-06-10 19:29] MED LIST changes: +OMNICEF300 MG PO
[2019-06-10 19:40] VITALS: Ht 157.5 cm; Wt 91.8 kg
[2019-06-10 20:14] LABS: BASOPHILS 0.4 % (0-2); EOSINOPHILS 2.8 % (0-7); HEMATOCRIT 36.3 % (36.0-48.0); HEMOGLOBIN 12.1 g/dL (12-16); IMMATURE GRANULOCYTES 0.6 % (0-5); LYMPHOCYTES 25.2 % (15-50); MCH 30.9 pg (26.0-34.0); MCHC 33.3 g/dL (31.0-37.0); MCV 92.8 fL (80.0-100.0); MEAN PLATELET VOLUME 9.9 fL (7.4-10.4); MONOCYTES 9.1 % (2-11); NEUTROPHILS 61.9 % (40-80); PLATELET COUNT 393 10x3/uL (130-400); RBC 3.91 10x6/uL (4.00-5.40); RDW 13.6 % (11.5-14.5); WBC 9.7 10x3/uL (4.8-10.8)
[2019-06-10 20:24] LABS: APPEARANCE CLEAR (CLEAR); BILIRUBIN NEGATIVE (NEGATIVE); COLOR STRAW (YELLOW); GLUCOSE 1000 mg/dL (NEGATIVE); KETONE NEGATIVE (NEGATIVE); NITRITE NEGATIVE (NEGATIVE); PROTEIN NEGATIVE (NEGATIVE); UROBILINOGEN NORMAL (NORMAL)
[2019-06-10 20:31] LABS: CALC OSMOLALITY 270 mosm/kg (275-300); CALCIUM 9.8 mg/dL (8.5-10.1); CARBON DIOXIDE 25.2 mmol/L (21.0-32.0); CHLORIDE - SERUM 94 mmol/L (98-107); CREATININE - SERUM 0.9 mg/dL (0.6-1.3); GLUCOSE 237 mg/dL (74-106); POTASSIUM - SERUM 4.7 mmol/L (3.5-5.1); SODIUM 128 mmol/L (136-145); UREA NITROGEN 29 mg/dL (7-18); eGFR NON AFRICAN AMERICAN 67 mL/min (90-120)
[2019-06-10 20:45] LABS: ALBUMIN 3.6 g/dL (3.4-5.0); ALKALINE PHOSPHATASE 128 U/L (46-116); ALT (SGPT) 34 U/L (10-68); BILIRUBIN - TOTAL 0.23 mg/dL (0.2-1.3); MAGNESIUM - SERUM 1.7 mg/dL (1.8-2.4); PROTEIN - SERUM 8.2 g/dL (6.4-8.2); THYROID STIMULATING HORMONE 3.42 uIU/mL (0.36-3.74)
[2019-06-10 21:25] LABS: KETONE - SERUM NEGATIVE (NEGATIVE)
[2019-06-10 22:18] VITALS: BP 156/95
== END 2019-06-10 22:18 | disposition home or self-care (01) ==
LOC: D.ER 19:29
PROVIDERS: Emergency Medicine
DX: E11.65 Type 2 diabetes mellitus with hyperglycemia (principal); Z79.4 Long term (current) use of insulin; R49.22 Hyponasality; I10 Essential (primary) hypertension; F32.9 Major depressive disorder, single episode, unspecified

== ENCOUNTER → 2020-11-26 16:00 | Outpatient (CLI) | payer MEDICARE ==
[2019-06-10 19:40] VITALS: BMI 37.0
== END | disposition home or self-care (01) ==
LOC: D.MAMMO 10:00
PROVIDERS: ATTEND Family Medicine
DX: Z12.31 Encounter for screening mammogram for malignant neoplasm of breast (principal)

== ENCOUNTER → 2020-12-05 09:25 | Outpatient (CLI) | payer MEDICARE, MEDICAID ==
[2019-06-10 19:40] VITALS: BMI 37.0
== END | disposition home or self-care (01) ==
LOC: D.US 12-04 09:00
PROVIDERS: ATTEND Family Medicine
DX: R92.8 Other abnormal and inconclusive findings on diagnostic imaging of breast (principal); K55.9 Vascular disorder of intestine, unspecified